=== PATIENT | female | born 1990 | race Caucasian/White ===

== ENCOUNTER → 2017-12-03 | Outpatient (REF) | payer OTHER ==
[2017-12-03 13:48] LABS: FOLLICLE STIMULATING HORMONE 5.2 mIU/mL
[2017-12-03 14:28] LABS: HIV 1&2 SCREEN CENTAUR NEGATIVE (NEGATIVE)
== END ==
LOC: M LAB REF 12:59
DX: N97.9 Female infertility, unspecified (principal); Z13.9 Encounter for screening, unspecified

== ENCOUNTER → 2017-12-03 | Outpatient (REF) | payer OTHER ==
[2017-12-03 15:46] LABS: CHLAMYDIA DNA AMPLIFICATION NEGATIVE (NEGATIVE); GC DNA AMPLIFICATION NEGATIVE (NEGATIVE)
== END ==
LOC: M LAB REF 12:59
DX: Z13.9 Encounter for screening, unspecified (principal)

== ENCOUNTER → 2017-12-11 | Outpatient (REF) | payer OTHER ==
[2017-12-13 14:17] LABS: HPV HYBRID CAPTURE II Negative (Negative)
== END ==
LOC: M LAB REF 14:46
DX: Z11.51 Encounter for screening for human papillomavirus (HPV) (principal)
CPT/HCPCS: G0123

== ENCOUNTER → 2018-03-11 | Outpatient (REF) | payer OTHER ==
[2018-03-11 18:11] LABS: HCG, SERUM QUANTITATIVE < 1.0 MIU/ML
== END ==
LOC: M LAB REF 16:22
DX: N92.0 Excessive and frequent menstruation with regular cycle (principal)

== ENCOUNTER → 2018-12-27 | Outpatient (REF) | payer OTHER ==
[2019-01-01 00:06] LABS: HPV HYBRID CAPTURE II Negative (Negative)
== END ==
LOC: M LAB REF 14:12
PROVIDERS: ATTEND Obstetrics & Gynecology
DX: Z12.4 Encounter for screening for malignant neoplasm of cervix (principal); Z11.51 Encounter for screening for human papillomavirus (HPV)
CPT/HCPCS: 87624; G0123

== ENCOUNTER → 2019-03-12 | Outpatient (REF) | payer OTHER ==
[2019-03-12 19:01] LABS: BASO % 0.2 % (0.0-1.0); HEMOGLOBIN 14.1 g/dl (12.0-15.5); LYMPH # 1.7 10^3/uL (1.5-4.5); LYMPH % 31.6 % (24.0-44.0); MEAN CORPUSCULAR HEMOGLOBIN 29.4 pg (27.0-33.0); MEAN CORPUSCULAR HGB CONC 33.6 g/dl (32.0-36.5); MEAN CORPUSCULAR VOLUME 87.7 fl (80.0-96.0); MONO # 0.5 10^3/uL (0.0-0.8); MONO % 8.5 % (0.0-5.0); NEUTROPHILS # 3.3 10^3/uL (1.8-7.7); NEUTROPHILS % 59.5 % (36.0-66.0); PLATELET COUNT, AUTOMATED 239 10^3/uL (150-450); RED BLOOD COUNT 4.79 10^6/uL (4.00-5.40); WHITE BLOOD COUNT 5.5 10^3/uL (4.0-10.0)
[2019-03-12 19:17] LABS: ALBUMIN 4.1 GM/DL (3.2-5.2); ALT/SGPT 23 U/L (12-78); BILIRUBIN,TOTAL 0.3 MG/DL (0.2-1.0); BLOOD UREA NITROGEN 18 MG/DL (7-18); CALCIUM LEVEL 8.4 MG/DL (8.5-10.1); CARBON DIOXIDE LEVEL 27 MEQ/L (21-32); CHLORIDE LEVEL 107 MEQ/L (98-107); CHOLESTEROL LEVEL 197 MG/DL (<200); CHOLESTEROL RISK RATIO 3.078 (<5); CREATININE FOR GFR 0.73 MG/DL (0.55-1.30); GLOMERULAR FILTRATION RATE > 60.0 (>60); GLUCOSE, FASTING 83 MG/DL (70-100); HDL CHOLESTEROL 64 MG/DL (>40); LDL CHOLESTEROL 118 MG/DL (<100); NON-HDL-C 133 MG/DL; POTASSIUM SERUM 4.1 MEQ/L (3.5-5.1); SODIUM LEVEL 142 MEQ/L (136-145); TOTAL PROTEIN 7.5 GM/DL (6.4-8.2); TRIGLYCERIDES LEVEL 74 MG/DL (<150)
[2019-03-12 19:45] LABS: HEMOGLOBIN A1c 4.9 %
== END ==
LOC: M LAB REF 18:16
PROVIDERS: ATTEND Nurse Practitioner Family
DX: Z12.4 Encounter for screening for malignant neoplasm of cervix (principal); N97.9 Female infertility, unspecified

== ENCOUNTER → 2019-08-18 | Outpatient (REF) | payer OTHER ==
[2019-08-18 13:26] LABS: HEMATOCRIT 43.8 % (36.0-47.0); HEMOGLOBIN 14.6 g/dl (12.0-15.5); LYMPH % 30.8 % (24.0-44.0); MEAN CORPUSCULAR HEMOGLOBIN 29.2 pg (27.0-33.0); MEAN CORPUSCULAR HGB CONC 33.3 g/dl (32.0-36.5); MEAN CORPUSCULAR VOLUME 87.6 fl (80.0-96.0); MONO # 0.6 10^3/uL (0.0-0.8); MONO % 8.5 % (0.0-5.0); NEUTROPHILS % 60.4 % (36.0-66.0); PLATELET COUNT, AUTOMATED 235 10^3/uL (150-450); WHITE BLOOD COUNT 6.6 10^3/uL (4.0-10.0)
[2019-08-18 13:37] LABS: ALT/SGPT 20 U/L (12-78); BILIRUBIN,TOTAL 0.4 MG/DL (0.2-1.0); BLOOD UREA NITROGEN 23 MG/DL (7-18); CALCIUM LEVEL 8.6 MG/DL (8.5-10.1); CARBON DIOXIDE LEVEL 27 MEQ/L (21-32); CHLORIDE LEVEL 107 MEQ/L (98-107); CHOLESTEROL LEVEL 160 MG/DL (<200); CHOLESTEROL RISK RATIO 2.622 (<5); CREATININE FOR GFR 0.73 MG/DL (0.55-1.30); GLOMERULAR FILTRATION RATE > 60.0 (>60); GLUCOSE, FASTING 88 MG/DL (70-100); HDL CHOLESTEROL 61 MG/DL (>40); LDL CHOLESTEROL 84 MG/DL (<100); NON-HDL-C 99 MG/DL; POTASSIUM SERUM 3.9 MEQ/L (3.5-5.1); SODIUM LEVEL 140 MEQ/L (136-145); TOTAL PROTEIN 7.1 GM/DL (6.4-8.2); TRIGLYCERIDES LEVEL 74 MG/DL (<150)
== END ==
LOC: M LAB REF 12:25
PROVIDERS: ATTEND Nurse Practitioner Family
DX: L50.9 Urticaria, unspecified (principal); Z13.9 Encounter for screening, unspecified

== ENCOUNTER → 2019-09-29 | Outpatient (CLI) | payer OTHER ==
[2019-09-29 13:40] LABS: ALBUMIN 4.1 GM/DL (3.2-5.2); ALT/SGPT 50 U/L (12-78); BILIRUBIN,TOTAL 0.7 MG/DL (0.2-1.0); BLOOD UREA NITROGEN 14 MG/DL (7-18); CALCIUM LEVEL 9.4 MG/DL (8.5-10.1); CARBON DIOXIDE LEVEL 28 MEQ/L (21-32); CHLORIDE LEVEL 105 MEQ/L (98-107); CREATININE FOR GFR 0.72 MG/DL (0.55-1.30); GLOMERULAR FILTRATION RATE > 60.0 (>60); GLUCOSE, FASTING 84 MG/DL (70-100); POTASSIUM SERUM 3.3 MEQ/L (3.5-5.1); RHEUMATOID FACTOR QUANT < 10.0 IU/ML (<15.0); SODIUM LEVEL 142 MEQ/L (136-145); THYROGLOBULIN ANTIBODY < 15.0 U/ML (<60.0); THYROID PEROXIDASE ANTIBODY < 28.0 U/ML (<60.0); THYROXINE (T4) 8.8 UG/DL (4.5-12.0); TOTAL PROTEIN 7.6 GM/DL (6.4-8.2); TOTAL T3 119.2 NG/DL (60.0-181.0)
[2019-10-03 14:57] LABS: ANTINUCLEAR ANTIBODIES DIRECT Negative (Negative); IGE RECEPTOR ABY 1 30.2 (<10)
== END ==
LOC: M LAB 12:02
PROVIDERS: ATTEND Allergy & Immunology Allergy
DX: L50.1 Idiopathic urticaria (principal)

== ENCOUNTER → 2019-11-05 | Outpatient (REF) | payer OTHER ==
[2019-11-05 13:19] LABS: HEMATOCRIT 43.2 % (36.0-47.0); HEMOGLOBIN 13.8 g/dl (12.0-15.5); LYMPH # 1.3 10^3/uL (1.5-5.0); LYMPH % 22.9 % (24.0-44.0); MEAN CORPUSCULAR HEMOGLOBIN 27.9 pg (27.0-33.0); MEAN CORPUSCULAR HGB CONC 31.9 g/dl (32.0-36.5); MEAN CORPUSCULAR VOLUME 87.3 fl (80.0-96.0); MONO # 0.5 10^3/uL (0.0-0.8); MONO % 8.1 % (0.0-5.0); NEUTROPHILS # 3.8 10^3/uL (1.5-8.5); NEUTROPHILS % 68.6 % (36.0-66.0); PLATELET COUNT, AUTOMATED 234 10^3/uL (150-450); RED BLOOD COUNT 4.95 10^6/uL (4.00-5.40); WHITE BLOOD COUNT 5.5 10^3/uL (4.0-10.0)
[2019-11-05 13:24] LABS: ALT/SGPT 25 U/L (12-78); BILIRUBIN,TOTAL 0.5 MG/DL (0.2-1.0); BLOOD UREA NITROGEN 18 MG/DL (7-18); CALCIUM LEVEL 8.5 MG/DL (8.5-10.1); CARBON DIOXIDE LEVEL 27 MEQ/L (21-32); CHLORIDE LEVEL 107 MEQ/L (98-107); CHOLESTEROL LEVEL 188 MG/DL (<200); CHOLESTEROL RISK RATIO 3.481 (<5); CREATININE FOR GFR 0.69 MG/DL (0.55-1.30); GLOMERULAR FILTRATION RATE > 60.0 (>60); GLUCOSE, FASTING 85 MG/DL (70-100); HDL CHOLESTEROL 54 MG/DL (>40); LDL CHOLESTEROL 115 MG/DL (<100); NON-HDL-C 134 MG/DL; POTASSIUM SERUM 4.1 MEQ/L (3.5-5.1); SODIUM LEVEL 141 MEQ/L (136-145); TRIGLYCERIDES LEVEL 94 MG/DL (<150)
== END ==
LOC: M LAB REF 10:54
PROVIDERS: ATTEND Nurse Practitioner Family
DX: Z13.9 Encounter for screening, unspecified (principal); L50.9 Urticaria, unspecified; F41.8 Other specified anxiety disorders

== ENCOUNTER → 2019-12-29 | Outpatient (REF) | payer OTHER | LOC: M SFHCWAGY 11:17 | PROVIDERS: ATTEND Obstetrics & Gynecology | DX: Z12.4 Encounter for screening for malignant neoplasm of cervix (principal) | CPT/HCPCS: 87624; G0123 ==

== ENCOUNTER → 2021-01-07 | Outpatient (REF) | payer OTHER ==
[2021-01-07 13:08] LABS: BASO % 0.2 % (0.0-1.0); HEMATOCRIT 43.2 % (36.0-47.0); HEMOGLOBIN 14.4 g/dl (12.0-15.5); LYMPH # 1.3 10^3/uL (1.5-5.0); LYMPH % 27.4 % (24.0-44.0); MEAN CORPUSCULAR HEMOGLOBIN 28.7 pg (27.0-33.0); MEAN CORPUSCULAR HGB CONC 33.3 g/dl (32.0-36.5); MEAN CORPUSCULAR VOLUME 86.2 fl (80.0-96.0); MONO # 0.5 10^3/uL (0.0-0.8); MONO % 10.5 % (2.0-8.0); NEUTROPHILS % 61.7 % (36.0-66.0); PLATELET COUNT, AUTOMATED 236 10^3/uL (150-450); RED BLOOD COUNT 5.01 10^6/uL (4.00-5.40); WHITE BLOOD COUNT 4.9 10^3/uL (4.0-10.0)
[2021-01-07 13:23] LABS: ALBUMIN 4.2 GM/DL (3.2-5.2); ALT/SGPT 20 U/L (12-78); BILIRUBIN,TOTAL 0.4 MG/DL (0.2-1.0); BLOOD UREA NITROGEN 21 MG/DL (7-18); CALCIUM LEVEL 9.2 MG/DL (8.5-10.1); CARBON DIOXIDE LEVEL 29 MEQ/L (21-32); CHLORIDE LEVEL 108 MEQ/L (98-107); CHOLESTEROL LEVEL 204 MG/DL (<200); CHOLESTEROL RISK RATIO 3.457 (<5); CREATININE FOR GFR 0.68 MG/DL (0.55-1.30); FREE T4 0.85 NG/DL (0.76-1.46); GLOMERULAR FILTRATION RATE > 60.0 (>60); GLUCOSE, FASTING 98 MG/DL (70-100); HDL CHOLESTEROL 59 MG/DL (>40); LDL CHOLESTEROL 135 MG/DL (<100); NON-HDL-C 145 MG/DL; POTASSIUM SERUM 4.2 MEQ/L (3.5-5.1); SODIUM LEVEL 140 MEQ/L (136-145); TOTAL PROTEIN 7.3 GM/DL (6.4-8.2); TRIGLYCERIDES LEVEL 52 MG/DL (<150)
[2021-01-07 18:00] LABS: TOTAL 25(OH) VITAMIN D 21.4 NG/ML (30.0-100.0)
== END ==
LOC: M LAB REF 12:00
PROVIDERS: ATTEND Nurse Practitioner Family
DX: E78.5 Hyperlipidemia, unspecified (principal); F41.9 Anxiety disorder, unspecified

== ENCOUNTER → 2021-08-22 | Outpatient (REF) | payer OTHER | LOC: M SFHCWAGY 10:05 | PROVIDERS: ATTEND Obstetrics & Gynecology | DX: Z01.419 Encounter for gynecological examination (general) (routine) without abnormal findings (principal) ==

== ENCOUNTER 2021-09-13 13:17 | Emergency (ER) | payer OTHER ==
[~2021-09-13] VITALS: Ht 160 cm; Wt 107.4 kg
--- OUTSIDE RECORDS SUMMARY | 2021-09-13 13:23 | CCD ---
Author Organization Unknown Address [address] [place] [address] Phone [phone] Care Team Providers Care Cook Relief Name Role Phone [facility] 2 [phone] [facility] 2 [phone] Allergies Code Code System Name Reaction Severity Status Onset Azithromycin Active [id number] RxNorm Latex Active 10/08/2019 Medications Name Status Start Date Stop Date ergocalciferol (vitamin D2) 1,250 mcg (50,000 unit) capsule Comp leted 07/26/2021 hydroxyzine HCl 25 mg tablet TAKE ONE TO TWO TABLETS BY MOUTH TWICE A DAY NEEDED FOR ITCHING OR INCREASED ANXIETY Active Not available ibuprofen 800 mg tablet TAKE ONE TABLET BY MOUTH THREE TIMES A DAY FOR 10 DAYS Completed 01/18/2021 ketoconazole 2 % shampoo SHAMPOO DAILY UNTIL SCALP IS CLEAR THEN 2 3 TIMES PER WEEK FOR MAINTENANCE Active Not available omeprazole 20 mg capsule,delayed release TAKE ONE CAPSULE BY MOUTH EVERY DAY Active Not available One Daily Complete Active Not available Problems Name Status Onset Date Source Ganglion of Wrist Active 11/07/2017 History Clinical Finding Active 11/07/2017 History Finding of Fertility Active 11/07/2017 History Screening for Malignant Neoplasm of Cervix Active 12/15 History Left Lower Quadrant Pain Active 03/11/2018 History Finding of Menstrual Bleeding Active 03/11/2018 Hi story Acute Maxillary Sinusitis Active 07/12/[address] Concept Active 03/12/2019 History Clinical Finding Active 08/11/2019 History Emotional State Finding Active 08/11/2019 History Diarrhea Active 09/15/2019 History Abscess of Submandibular Region Active 10/08/2019 History 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 Active 10/09/2019 History Mild Major Depression, Single Episode Active 10/27/[address] Concept Active 10/27/2019 History Patient Asked to Attend Active 11/12/2019 History General Finding of Observation of Patient Active 2019 History Hypertrophic Condition of Skin Active 06/07/2020 H istory Procedures Notes: No known surgical history Results Lab Results Date Name Specimen Result Interpretation Description Value Range Status Address 04/11/2021 Lipid Panel, Blood Blood venous Cholesterol , Total 197 mg/dL <200 mg/dL Final [facility]: [address] [facility] Blood venous HDL Cholesterol 53 mg/dL > or = 50 mg/dL Final [facility]: [address] [facility] Blood venous Triglycerides 70 mg/dL <150 m g/dL Final [facility]: [address] [facility] Blood venous High LDL-cholesterol 128 mg/d L (calc) <100 mg/dL (calc) Final [facility] venous Chol/hdlc Ratio 3.7 calc <5.0 calc Final [facility]: [address] [facility] Blood venous High Non HDL Cholesterol 144 mg/dL (calc) <130 mg/dL (calc) Final [facility]: [address] [facility] 04/11/2021 CMP, Serum or Plasma Blood venous Normal Glucose 92 mg/dL 65-99 mg/dL Final [facility]: [address] [facility] Blood venous Normal Urea Nitrogen (BUN) 18 mg/dL 7-25 mg/dL Final [facility]: [address] [facility] Blood venous Normal Creatinine 0.61 mg/dL 0.50-1. 10 mg/dL Final [facility]: [address] [facility] Blood venous Normal eGFR Non-afr. Finnish 1 20 mL/min/1.73m2 > or = 60 mL/min/1.73m2 Final [facility]: [address] [facility] Blood venous Normal eGFR 13 9 mL/min/1.73m2 > or = 60 mL/min/1.73m2 Final [facility]: [address] [facility] Blood venous BUN/creatinine Ratio not applicable (calc) 6-22 (calc) Final [facility]: [address] [facility] Blood venous Normal Sodium 140 mmol/L 135-146 mmo l/L Final [facility]: [address] [facility] Blood venous Normal Potassium 4.7 mmol/L 3.5-5.3 mmol/L Final [facility]: [address] [facility] Blood venous Normal Chloride 104 mmol/L 98-110 mm ol/L Final [facility]: [address] [facility] Blood venous Normal Carbon Dioxide 27 mmol/L 20-3 2 mmol/L Final [facility]: [address] [facility] Blood venous Normal Calcium 9.2 mg/dL 8.6-10.2 mg /dL Final [facility]: [address] [facility] Blood venous Normal Protein, Total 6.9 g/dL 6.1-8 .1 g/dL [facility]: [address] [facility] Blood venous Normal Albumin 4.4 g/dL 3.6-5.1 g/dL [facility]: [address] [facility] Blood venous Normal Globulin 2.5 g/dL (calc) 1.9- 3.7 g/dL (calc) Final [facility]: [address] [facility] Blood venous Normal Albumin/globulin Ratio 1 .8 (calc) 1.0-2.5 (calc) Final [facility] Blood venous Normal Bilirubin, Total 0.6 mg/dL 0. 2-1.2 mg/dL Final [facility]: [address] [facility] Blood venous Normal Alkaline Phosphatase 81 U/L 3 1-125 U/L Final [facility]: [address] [facility] Blood venous Normal Ast 15 U/L 10-30 U/L Final [facility]: [address] [facility] Blood venous Normal Alt 14 U/L 6-29 U/L Final [facility]est [facility]: [address] [facility] 04/11/2021 CBC W/ Auto Diff Blood venous Normal White B lood Cell Count 4.9 thousand/uL 3.8-10.8 thousand/uL Final [facility]: [address] [facility] Blood venous Normal Red Blood Cell Count 4.8 3 million/uL 3.80-5.10 million/uL [facility] [address] [facility] Blood venous Normal Hemoglobin 14.0 g/dL 11.7-15. 5 g/dL [facility]: [address] [facility] Blood venous Normal Hematocrit 42.0 % 35.0-45.0 % [facility]: [address] [facility] Blood venous Normal Mcv 87.0 fL 80.0-100.0 fL Fi [facility]: [address] [facility] Blood venous Normal Mch 29.0 pg 27.0-33.0 pg Fin [facility]: [address] [facility] Blood venous Normal Mchc 33.3 g/dL 32.0-36.0 g/dL [facility]: [address] [facility] Blood venous Normal Rdw 12.6 % 11.0-15.0 % [facility]: [address] [facility] Blood venous Normal Platelet Count 250 thous and/uL 140-400 thousand/uL [facility]: [address] [facility] Blood venous Normal Mpv 9.9 fL 7.5-12.5 fL [facility]: [address] [facility] Blood venous Normal Absolute Neutrophils 303 3 cells/uL 0760-3555 cells/uL [facility]: [address] [facility] Blood venous Normal Absolute Lymphocytes 139 7 cells/uL 850-3900 cells/uL [facility]: [facility] Blood venous Normal Absolute Monocytes 470 c ells/uL 200-950 cells/uL [facility]: [address] [facility] [address] [facility] Blood venous Low Absolute Eosinophils 0 cells/ uL 15-500 cells/uL [facility]: [address], [place] Blood venous Normal Absolute Basophils 0 cells/uL 0-200 cells/uL [facility] [place]: [address] [facility] Blood venous Normal Neutrophils 61.9 % 38-80 % Fi [facility]: [address] [facility] Blood venous Normal Lymphocytes 28.5 % 15-49 % Fi [facility]: [facility] Blood venous Normal Monocytes 9.6 % 0-13 % [facility]: [address] [facility] Blood venous Normal Eosinophils 0.0 % 0-8 % Fin [facility]: [address], [place] Blood venous Normal Basophils 0.0 % 0-2 % Final [facility]: [address] [place] 01/07/2021 CBC W/ Auto Diff Blood venous Normal White Blood C ount 4.9 10 4.0-10.0 10 [facility]: 83 0 [facility] Blood venous Normal Red Blood Count 5.01 10 4.00- 5.40 10 [facility]: [address] [facility] Blood venous Normal Hemoglobin 14.4 g/dL 12.0-15. 5 g/dL [facility]: [address] [facility] Blood venous Normal Hematocrit 43.2 % 36.0-47.0 % [facility]: [address] [facility] Blood venous Normal Mean Corpuscular Volume 86.2 fL 80.0-96.0 fL [facility]: [address] [place] [address] Blood venous Normal Mean Corpuscular Hemoglob in 28.7 pg 27.0-33.0 pg [facility]: [address] [facility] Blood venous Normal Mean Corpuscular HGB Conc 33.3 g/dL 32.0-36.5 g/dL [facility]: [address] [facility] Blood venous Normal Red Cell Distribution Wid th 12.7 % 11.5-14.5 % [facility]: [address] [facility] Blood venous Normal Platelet Count, Automated 236 10 150-450 10 [facility]: [address] [facility] Blood venous Normal Neutrophils % 61.7 % 36.0-66. 0 % [facility]: [address] [facility] Blood venous Normal Lymph % 27.4 % 24.0-44.0 % [facility]: [address] [facility] Blood venous High [place] % 10.5 % 2.0-8.0 % [facility]: [address] [place] [address] Blood venous Normal Eos % 0.0 % 0.0-3.0 % [facility]: [address] [place] [address] Blood venous Normal Baso % 0.2 % 0.0-1.0 % [facility]: [address] [place] [address] Blood venous Normal Immature Granulocyte % 0.2 % 0-3.0 % [facility]: [address] [place] [address] Blood venous Normal Nucleated Red Blood Cell % 0. 0 % 0-0 % [facility]: [address] [place] [address] Blood venous Normal Neutrophils # 3.0 10 1.5-8.5 10 [facility]: [address] [place] [address] Blood venous Low Lymph # 1.3 10 1.5-5.0 10 [facility]: [address] [place] [address] Blood venous Normal [place] # 0.5 10 0.0-0.8 10 [facility]: [address] [place] [address] Blood venous Normal Eos # 0.0 10 0.0-0.5 10 [facility]: [address] [place] [address] Blood venous Normal Baso # 0.0 10 0.0-0.2 10 [facility]: [address] [place] [address] 01/07/2021 CMP, Serum or Plasma Blood venous Normal Glu cose, Fasting 98 mg/dL 70-100 mg/dL [facility] nter: [address] [place] [address] Blood venous High Blood Urea Nitrogen 21 mg/dL 7-18 mg/dL [facility]: [address] [place] [address] Blood venous Normal Creatinine for GFR 0.68 mg/dL 0.55-1.30 mg/dL [facility]: [address] [place] [address] Blood venous Normal Glomerular Filtration Rate > 60.0 >60 [facility]: [address] [place] [address] Blood venous Normal Sodium Level 140 mEq/L 136-14 5 mEq/L [facility]: [address] [place] [address] Blood venous Normal Potassium Serum 4.2 mEq/L 3.5 -5.1 mEq/L [facility]: [address] [place] [address] Blood venous High Chloride Level 108 mEq/L 98-1 07 mEq/L [facility]: [address] [facility] Blood venous Normal Carbon Dioxide Level 29 mEq/L 21-32 mEq/L [facility]: [address] [facility] Blood venous Low Anion Gap 3 mEq/L 8-16 mEq/L [facility]: [address] [facility] Blood venous Normal Calcium Level 9.2 mg/dL 8.5-1 0.1 mg/dL Final [facility]: [address] [facility] Blood venous Normal AST/SGOT 10 U/L 7-37 U/L [facility]: [address] [facility] Blood venous Normal ALT/SGPT 20 U/L 12-78 U/L [facility]: [address] [facility] Blood venous Normal Alkaline Phosphatase 80 U/L 4 5-117 U/L [facility]: [address] [facility] Blood venous Normal Bilirubin,total 0.4 mg/dL 0.2 -1.0 mg/dL [facility]: [address] [facility] Blood venous Normal Total Protein 7.3 gm/dL 6.4-8 .2 gm/dL [facility]: 0 [facility] Blood venous Normal Albumin 4.2 gm/dL 3.2-5.2 gm/ dL [facility]: [address] [facility] Blood venous Normal Albumin/globulin Ratio 1.4 1.2-2.2 [facility]: 0 [facility] 01/07/2021 Lipid Panel, Blood Blood venous Normal Trigl ycerides Level 52 mg/dL <150 mg/dL [facility] nter: [address] [facility] Blood venous High Cholesterol Level 204 mg/dL < 200 mg/dL [facility]: [address] [facility] Blood venous Normal HDL Cholesterol 59 mg/dL >40 mg/dL [facility]: [address] [facility] Blood venous High LDL Cholesterol 135 mg/dL <10 0 mg/dL [facility]: [address] [facility] Blood venous Normal Non-hdl-c 145 mg/dL [facility]: [address] [facility] Blood venous Normal Cholesterol Risk Ratio 3.457 <5 [facility]: [address] [place] [address] 01/07/2021 TSH + Free T4, Serum Blood venous Normal Thyroid Stimulating Hormone 2.280 uIU/mL 0.358-3.740 uIU/mL [facility]: [address] [place] [address] Blood venous Normal Free T4 0.85 NG/dL 0.76-1.46 NG/dL [facility]: [address] [place] [address] 01/07/2021 Vitamin D, 25-Hydroxy, Total, Serum Blood venous Low Total 25(Oh) Vitamin D 21.4 NG/mL 30.0-100.0 NG/mL [facility] Center: [address] [place] [address] Past Encounters 07/26/2021 Generalized Anxiety Disorder; Body Mass Index 40+ - Severely Obese [facility]: [address] [place] [phone], Ph. 04/25/2021 Body Mass Index 30+ - Obesity; Patient Asked to Attend; Hyperlipidemia [place] [facility]: [address] [place] [phone], Ph. 04/11/2021 Hyperlipidemia Zachary Salinas MD: [address] [place] [phone], Ph. 01/18/2021 Generalized Anxiety Disorder; Mixed Anxiety and Depressive Disorder; Vitamin D Deficiency; Hyperlipidemia; Gastroesophageal Reflux Disease without Esophagitis; Obesity [facility]: [address] [place] [phone], Ph. 01/07/2021 Zachary Salinas MD: [address] [place] [phone], Ph. Social History Tobacco Smoking Status Never Smoker Vaccine List Vaccine Type COVID-19, mRNA, LNP-S, PF, 100 mcg/0.5 m L dose 07/08/2021 Notes: Pt scheduled for 2nd dose on (08/05/21) Plan of Care Patient Instructions Please continue medications as prescribe d. Please try to maintain good nutrition, adequate rest and adequate physical activities and adequate intake of water daily. Lab results reviewed and discussed with you today. Please continue medications as prescribed. Please try to maintain good nutrition, adequate rest and adequate physical activities and adequate intake of water daily. Lab results reviewed and discussed with you today. Please continue medications as prescribed. Please try to maintain good nutrition, adequate rest, adequate physical activities and adequate intake of water daily. Please try to avoid processed foods. Reminders Provider Appointments None recorded. Lab None recorded. Referral None recorded. Procedures None recorded. Surgeries None recorded. Imaging None recorded. Vitals 07/26/2021 03:20PM ESTABLISHED [id number] Height Weight BMI Blood Pressure 63 in 227 lbs 40.2 kg/m2 108/74 mm[Hg] 04/25/2021 08:20AM ESTABLISHED [id number] Height Weight BMI Blood Pressure 63 in 222 lbs 8 oz 39.4 kg/m2 99/70 mm[Hg] 04/11/2021 08:00AM NURSE LAB COLLECTION Height 63 in 01/18/2021 04:40PM ESTABLISHED [id number] Height Weight BMI Blood Pressure 63 in 228 lbs 4 oz 40.4 kg/m2 112/81 mm[Hg] 06/07/2020 Height Weight BMI Blood Pressure 63 in 217 lbs 8 oz 38.67 kg/m2 119/82 mm[Hg] 03/04/2020 Height Weight BMI Blood Pressure 63 in 217 lbs 8 oz 38.67 kg/m2 107/74 mm[Hg] 11/12/2019 Height Weight BMI Blood Pressure 63 in 212 lbs 37.69 kg/m2 111/78 mm[Hg] 10/08/2019 Blood Pressure 122/84 mm[Hg] 09/15/2019 Height Weight BMI Blood Pressure 63 in 212 lbs 6.08 oz 37.76 kg/m2 120/82 mm[H g] 08/11/2019 Height Weight BMI Blood Pressure 63 in 206 lbs 36.62 kg/m2 111/75 mm[Hg] 03/12/2019 Height Weight BMI Blood Pressure 63 in 201 lbs 8 oz 35.82 kg/m2 112/82 mm[Hg]
--- OUTSIDE RECORDS SUMMARY | 2021-09-13 13:23 | CCD ---
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 Name Role Phone Sruthi Salinas MD Unavailable Unavailable Sruthi Salinas MD Unavailable Unavailable Sruthi Salinas MD Unavailable Unavailable Sruthi Salinas MD Unavailable Unavailable Sruthi Salinas MD Unavailable Unavailable Sruthi Salinas MD Unavailable Unavailable Sruthi Salinas MD Unavailable Unavailable Sruthi Salinas MD Unavailable Unavailable Sruthi Salinas MD Unavailable Unavailable Sruthi Salinas MD Unavailable Unavailable Sruthi Salinas MD Unavailable Unavailable Sruthi Salinas MD Unavailable Unavailable Sruthi Salinas MD Unavailable Unavailable Sruthi Salinas MD Unavailable Unavailable Sruthi Salinas MD Unavailable Unavailable Sruthi Salinas MD Unavailable Unavailable Sruthi Salinas MD Unavailable Unavailable Sruthi Salinas MD Unavailable Unavailable Sruthi Salinas MD Unavailable Unavailable Sruthi Salinas MD Unavailable Unavailable Sruthi Salinas MD Unavailable Unavailable Sruthi Salinas MD Unavailable Unavailable Sruthi Salinas MD Unavailable Unavailable Sruthi Salinas MD Unavailable Unavailable Sruthi Salinas MD Unavailable Unavailable Sruthi Salinas MD Unavailable Unavailable Sruthi Salinas MD Unavailable Unavailable Sruthi Salinas MD Unavailable Unavailable Sruthi Salinas MD Unavailable Unavailable rSuthi Salinas MD Unavailable Unavailable Sruthi Salinas MD Unavailable Unavailable Sruthi Salinas MD Unavailable Unavailable Sruthi Salinas MD Unavailable Unavailable Sruthi Salinas MD Unavailable Unavailable Sruthi Salinas MD Unavailable Unavailable Sruthi Salinas MD Unavailable Unavailable Sruthi Salinas MD Unavailable Unavailable Sruthi Salinas MD Unavailable Unavailable Sruthi Salinas MD Unavailable Unavailable Sruthi Salinas MD Unavailable Unavailable Sruthi Salinas MD Unavailable Unavailable Sruthi Salinas MD Unavailable Unavailable Sruthi Salinas MD Unavailable Unavailable Sruthi Salinas MD Unavailable Unavailable Sruthi Salinas MD Unavailable Unavailable Srtuhi Salinas MD Unavailable Unavailable Sruthi Salinas MD Unavailable Unavailable Sruthi Salinas MD Unavailable Unavailable Sruthi Salinas MD Unavailable Unavailable Sruthi Salinas MD Unavailable Unavailable Sruthi Salinas MD Unavailable Unavailable Sruthi Salinas MD Unavailable Unavailable Sruthi Salinas MD Unavailable Unavailable Sruthi Salinas MD Unavailable Unavailable Sruthi Salinas MD Unavailable Unavailable Sruthi Salinas MD Unavailable Unavailable Sruthi Salinas MD Unavailable Unavailable Sruthi Salinas MD Unavailable Unavailable Sruthi Salinas MD Unavailable Unavailable Sruthi Salinas MD Unavailable Unavailable Sruthi Salinas MD Unavailable Unavailable Sruthi Salinas MD Unavailable Unavailable Sruthi Salinas MD Unavailable Unavailable Sruthi Salinas MD Unavailable Unavailable Sruthi Salinas MD Unavailable Unavailable Sruthi Salinas MD Unavailable Unavailable Sruthi Salinas MD Unavailable Unavailable Sruthi Salinas MD Unavailable Unavailable Sruthi Salinas MD Unavailable Unavailable Sruthi Salinas MD Unavailable Unavailable Sruthi Salinas MD Unavailable Unavailable Sruthi Salinas MD Unavailable Unavailable Sruthi Salinas MD Unavailable Unavailable Sruthi Salinas MD Unavailable Unavailable Sruthi Salinas MD Unavailable Unavailable Sruthi Salinas MD Unavailable Unavailable Sruthi Salinas MD Unavailable Unavailable Sruthi Salinas MD Unavailable Unavailable Sruthi Salinas MD Unavailable Unavailable Sruthi Salinas MD Unavailable Unavailable Sruthi Salinas MD Unavailable Unavailable Sruthi Salinas MD Unavailable Unavailable Sruthi Salinas MD Unavailable Unavailable Sruthi Salinas MD Unavailable Unavailable Sruthi Salinas MD Unavailable Unavailable Sruthi Salinas MD Unavailable Unavailable Sruthi Salinas MD Unavailable Unavailable Sruthi Salinas MD Unavailable Unavailable Sruthi Salinas MD Unavailable Unavailable Sruthi Salinas MD Unavailable Unavailable Sruthi Salinas MD Unavailable Unavailable Sruthi Salinas MD Unavailable Unavailable Sruthi Salinas MD Unavailable Unavailable Maring, Heri PA Unavailable Unavailable Maring, Heri PA Unavailable Unavailable Maring, Heri PA Unavailable Unavailable Maring, Heri PA Unavailable Unavailable Maring, Heri PA Unavailable Unavailable Maring, Heri PA Unavailable Unavailable Maring, Heri PA Unavailable Unavailable Maring, Heri PA Unavailable Unavailable Maring, Heri PA Unavailable Unavailable Maring, Heri PA Unavailable Unavailable Maring, Heri PA Unavailable Unavailable Maring, Heri PA Unavailable Unavailable Maring, Heri PA Unavailable Unavailable Maring, Heri PA Unavailable Unavailable Maring, Heri PA Unavailable Unavailable Maring, Heri PA Unavailable Unavailable Wicho, A Marcelina DYE RANGE TENDER Unavailable Unavailable Wicho, A Marcelina DYE RANGE TENDER Unavailable Unavailable Wicho, A Marcelina DYE RANGE TENDER Unavailable Unavailable Wicho, A Marcelina DYE RANGE TENDER Unavailable Unavailable Wicho, A Marcelina DYE RANGE TENDER Unavailable Unavailable Wicho, A Marcelina DYE RANGE TENDER Unavailable Unavailable Wicho, A Marcelina DYE RANGE TENDER Unavailable Unavailable Wicho, A Marcelina DYE RANGE TENDER Unavailable Unavailable Wicho, A Marcelina DYE RANGE TENDER Unavailable Unavailable Wicho, A Marcelina DYE RANGE TENDER Unavailable Unavailable Wicho, A Marcelina DYE RANGE TENDER Unavailable Unavailable Wicho, A Marcelina DYE RANGE TENDER Unavailable Unavailable Wicho, A Marcelina DYE RANGE TENDER Unavailable Unavailable Wicho, A Marcelina DYE RANGE TENDER Unavailable Unavailable Wicho, A Marcelina DYE RANGE TENDER Unavailable Unavailable Wicho, A Marcelina DYE RANGE TENDER Unavailable Unavailable Wicho, A Marcelina DYE RANGE TENDER Unavailable Unavailable Wicho, A Marcelina DYE RANGE TENDER Unavailable Unavailable Wicho, A Marcelina DYE RANGE TENDER Unavailable Unavailable Wicho, A Marcelina DYE RANGE TENDER Unavailable Unavailable Wicho, A Marcelina DYE RANGE TENDER Unavailable Unavailable Wicho, A Marcelina DYE RANGE TENDER Unavailable Unavailable Wicho, A Marcelina DYE RANGE TENDER Unavailable Unavailable Wicho, A Marcelina DYE RANGE TENDER Unavailable Unavailable Wicho, A Marcelina DYE RANGE TENDER Unavailable Unavailable Wicho, A Marcelina DYE RANGE TENDER Unavailable Unavailable Wicho, A Marcelina DYE RANGE TENDER Unavailable Unavailable Wicho, A Marcelina DYE RANGE TENDER Unavailable Unavailable Wicho, A Marcelina DYE RANGE TENDER Unavailable Unavailable Wicho, A Marcelina DYE RANGE TENDER Unavailable Unavailable Wicho, A Marcelina DYE RANGE TENDER Unavailable Unavailable Re-disclosure Warning The records that you are about to access may contain information from federally-assisted alcohol or drug abuse programs. If such information is present, then the following federally mandated warning applies: This information has been disclosed to you from records protected by federal confidentiality rules (42 CFR part 2). The federal rules prohibit you from making any further disclosure of this information unless further disclosure is expressly permitted by the written consent of the person to whom it pertains or as otherwise permitted by 42 CFR part 2. A general authorization for the release of medical or other information is NOT sufficient for this purpose. The Federal rules restrict any use of the information to criminally investigate or prosecute any alcohol or drug abuse patient.The records that you are about to access may contain highly sensitive health information, the redisclosure of which is protected by Article 27-F of the [facility] Public Health law. If you continue you may have access to information: Regarding HIV / AIDS; Provided by facilities licensed or operated by the [facility] Office of Mental Health; or Provided by the [facility] Office for People With Developmental Disabilities. If such information is present, then the following [facility] mandated warning applies: This information has been disclosed to you from confidential records which are protected by state law. State law prohibits you from making any further disclosure of this information without the specific written consent of the person to whom it pertains, or as otherwise permitted by law. Any unauthorized further disclosure in violation of state law may result in a fine or penitentiary sentence or both. A general authorization for the release of medical or other information is NOT sufficient authorization for further disc losure. Family History Family Member Name Family Member Gender Family Member Status Date o f Status Description Data Source(s) Unknown Unknown Problem MEDENT ([facility]) Unknown Unknown Problem MEDENT ([facility]) Unknown Male Problem MEDENT ([facility] ) Encounters Encounter Providers Location Date Indications Data Source(s ) Outpatient [address] [facility] [id number] 08/22/2021 12:00:00 AM EDT eCW1 ([facility]) EMILY Bryant: [address] [place] [address], Ph. Attender: Marcelina Sands [facility] Medical 07/26/2021 12:00:00 AM EDT [place] ([facility]) EMILY Bryant: [address], [place] [address], Ph. Attender: Marcelina Sands [facility] Medical 04/25/2021 12:00:00 AM EDT [place] ([facility]) EMILY Bryant: [address] [place] [address], Ph. Attender: Marcelina Sands [facility] Medical 04/25/2021 12:00:00 AM EDT [place] ([facility]) Zachary Salinas MD: [address], [place] [address], Ph. Attender: Zachary Salinas MD [facility] Medical 04/11/2021 12:00:00 AM EDT [place] ([facility]) Zachary Salinas MD: [address] [place] [address], Ph. Attender: Zachary Salinas MD [facility] Medical 04/11/2021 12:00:00 AM EDT [place] ([facility]) Zachary Salinas MD: [address] [place] [address], Ph. Attender: Zachary Salinas MD [facility] Medical 04/11/2021 12:00:00 AM EDT [place] ([facility]) Marcelina Sands [facility]: [address], [place] [address], Ph. Attender: Marcelina Sands [facility] Medical 01/18/2021 12:00:00 AM EDT [place] ([facility]) Marcelina Sands [facility]: [address], [place] [address], Ph. Attender: Marcelina Sands [facility] Medical 01/18/2021 12:00:00 AM EDT [place] ([facility]) Marcelina Sands [facility]: [address], [place] [address], Ph. Attender: Marcelina Sands [facility] Medical 01/18/2021 12:00:00 AM EDT [place] ([facility]) Marcelina Sands [facility]: [address] [place] [address], Ph. Attender: Marcelina Sands [facility] Medical 01/18/2021 12:00:00 AM EDT [place] ([facility]) Zachary Salinas MD: [address] [place] [address], Ph. Attender: Zachary Salinas MD [facility] Medical 01/07/2021 12:00:00 AM EST [place] ([facility]) Zachary Salinas MD: [address] [place] [address], Ph. Attender: Zachary Salinas MD [facility] Medical 01/07/2021 12:00:00 AM EST [place] ([facility]) Zachary Salinas MD: [address] [place] [address], Ph. Attender: Zachary Salinas MD [facility] Medical 01/07/2021 12:00:00 AM EST [place] ([facility]) Zachary Salinas MD: [address] [place] [address], Ph. Attender: Zachary Salinas MD [facility] Medical 01/07/2021 12:00:00 AM EST [place] ([facility]) Zachary Salinas MD: [address] [place] [address], Ph. Attender: Zachary Salinas MD [facility] Medical 01/07/2021 12:00:00 AM EST [place] ([facility]) Outpatient Attender: Heri ARMENTA 12/26/19 05:41:46 PM EST - 12/26/2020 06:58:04 PM EST DocuTap ([facility] ) Immunizations Vaccine Date Status Description Data Source(s) COVID-19 VACCINE Moderna 08/05/2021 12:00:00 AM EDT completed [place] Vaccine Series Complete: YESThis Data wa s Submitted to [facility] Via [employer]. COVID-19, mRNA, LNP-S, PF, 100 mcg/0.5 mL dose 07/08/2021 12 :00:00 AM EDT completed 07/08/2021 [place] ([facility]) COVID-19 VACCINE Moderna 07/08/2021 12:00:00 AM EDT completed [place] Vaccine Series Complete: NOThis Data was Submitted to [facility] Via [employer]. Medications Medication Brand Name Start Date Product Form Dose Route Admi nistrative Instructions Pharmacy Instructions Status Indications Reaction Description Data Source(s) Omeprazole 20 MG Delayed Release Oral Capsule Omeprazole 20 MG 08/22/2021 12:00:00 AM EDT active Omeprazo le 20 MG [facility] Ibuprofen 800 MG Oral Tablet ibuprofen 8 00 mg tablet TAKE ONE TABLET BY MOUTH THREE TIMES A DAY FOR 10 DAYS ibuprofen 800 mg tablet TAKE ONE TABLET BY MOUTH THREE TIMES A DAY FOR 10 DAYS complete d ibuprofen 800 MG Oral Tablet [place] ([facility]) Ibuprofen 800 MG Oral Tablet ibuprofen 8 00 mg tablet TAKE ONE TABLET BY MOUTH THREE TIMES A DAY FOR 10 DAYS ibuprofen 800 mg tablet TAKE ONE TABLET BY MOUTH THREE TIMES A DAY FOR 10 DAYS complete d ibuprofen 800 MG Oral Tablet [place] ([facility]) Ergocalciferol 84556 UNT Oral Capsule er gocalciferol (vitamin D2) 1,250 mcg (50,000 unit) capsule ergocalciferol (vitamin D2) 1,250 mcg (5 0,000 unit) capsule completed ergocalciferol 1.25 MG Oral Capsule [place] ([facility]) Ibuprofen 800 MG Oral Tablet ibuprofen 8 00 mg tablet TAKE ONE TABLET BY MOUTH THREE TIMES A DAY FOR 10 DAYS ibuprofen 800 mg tablet TAKE ONE TABLET BY MOUTH THREE TIMES A DAY FOR 10 DAYS complete d ibuprofen 800 MG Oral Tablet [place] ([facility]) Ibuprofen 800 MG Oral Tablet ibuprofen 8 00 mg tablet TAKE ONE TABLET BY MOUTH THREE TIMES A DAY FOR 10 DAYS ibuprofen 800 mg tablet TAKE ONE TABLET BY MOUTH THREE TIMES A DAY FOR 10 DAYS complete d ibuprofen 800 MG Oral Tablet [place] ([facility]) Insurance Providers Payer name Policy type / Coverage type Policy ID Covered democrat ID Covered democrat's relationship to finch Policy Finch Plan Information [employer] (pr) Commercial [id number] Self [id number] [employer] (pr) Medigap Part B [id number] Self [id number] [employer] (pr) Commercial [id number] Self [id number] [employer] (pr) Commercial [id number] Self [id number] [employer] (pr) Medigap Part B [id number] Self [id number] [employer] (pr) Commercial [id number] Self [id number] [employer] P [id number] S [id number] UMR P [id number] S [id number] UMR P [id number] S [id number] U[employer] (pr) Commercial [id number] Self [id number] UMR P [id number] S [id number] UMR P [id number] S [id number] UMR P [id number] S [id number] UMR P [id number] S [id number] [address] [facility] [employer] [id number] Self [id number] ID IDENTIFICATION ID IDENTIFICATION [id number] Other Insurance ID IDENTIFICATION [facility] PLAN [facility] PLAN [id number] Commercial Insurance [facility] [id number] R [facility] [id number] SP [id number] R [facility] [id number] SP [id number] D [employer] S [id number] S [id number] UMR [facility] [id number] SP [id number] D UMR S [id number] S [id number] 2 UMR P [id number] S [id number] 2 UMR [facility] [id number] SP [id number] Umr Commercial [id number] Self [id number] UMR [id number] Commercial Insurance [id number] ID IDENTIFICATION [id number] Other Insurance [id number] [facility] [id number] Comme rcial Insurance [id number] [facility] [id number] Commercial [facility] [id number] [facility] [id number] Self [id number] [employer] [id number] SP [id number] [facility] Health Maintenance Organization (HMO) [id number] Self [id number] Problems, Conditions, and Diagnoses Code Display Name Description Problem Type Effective Dates Data Source(s) N97.9 Female infertility Infertility, female, primary Proble m 08/22/2021 12:00:00 AM EDT [facility] Surgeries/Procedures No Information Results ID Date Data Source [id number] 04/11/2021 08:44:00 AM EDT [place] ([facility]) Name Value Range Interpretation Code Description Data Hilary rce(s) Supporting Document(s) Leukocytes [#/volume] in Blood by Automated count 4.9 thousand/uL 3 .8-10.8 White Blood Cell Count [place] ([facility]) Erythrocytes [#/volume] in Blood by Automated count 4.83 million/uL 3.80-5.10 Red Blood Cell Count [place] ([facility]) Erythrocyte mean corpuscular volume [Entitic volume] by Auto mated count 87.0 fL 80.0-100.0 Mcv [place] ([facility]) Hemoglobin [Mass/volume] in Blood 14.0 g/dL 11.7-15.5 He moglobin [place] ([facility]) Hematocrit [Volume Fraction] of Blood by Automated count 42.0 % 35.0-45.0 Hematocrit [place] ([facility]) Erythrocyte mean corpuscular hemoglobin [Entitic mass] by Automated count 29.0 pg 27.0-33.0 Mch [place] ([facility]) Erythrocyte mean corpuscular hemoglobin concentration [Mass/volume] by Automated count 33.3 g/dL 32.0-36.0 Mchc [place] ([facility]) Erythrocyte distribution width [Ratio] by Automated count 12.6 % 11.0-15.0 Rdw [place] ([facility]) Platelet mean volume [Entitic volume] in Blood by Mariana 9.9 fL 7.5-12.5 Mpv [place] ([facility]) Neutrophils [#/volume] in Blood by Automated count 3033 cells/uL 15 00-7800 Absolute Neutrophils [place] ([facility]) Platelets [#/volume] in Blood by Automated count 250 thousand/uL 14 0-400 Platelet Count [place] ([facility]) Lymphocytes [#/volume] in Blood by Automated count 1397 cells/uL 85 0-3900 Absolute Lymphocytes [place] ([facility]) Monocytes [#/volume] in Blood by Automated count 470 cells/uL 200-9 50 Absolute Monocytes [place] ([facility]) Eosinophils [#/volume] in Blood by Automated count 0 cells/uL 15-500 Below low normal Absolute Eosinophils [place] ([facility]) Neutrophils/100 leukocytes in Blood by Automated count 61.9 % 38-80 Neutrophils [facility] ([facility]) Lymphocytes/100 leukocytes in Blood by Automated count 28.5 % 15-49 Lymphocytes [facility] ([facility]) Basophils [#/volume] in Blood by Automated count 0 cells/uL 0-200 Absolute Basophils [facility] ([facility]) Monocytes/100 leukocytes in Blood by Automated count 9.6 % 0-13 Monocytes [place] ([facility]) Basophils/100 leukocytes in Blood by Automated count 0.0 % 0-2 Basophils [place] ([facility]) Eosinophils/100 leukocytes in Blood by Automated count 0.0 % 0-8 Eosinophils [facility] ([facility]) ID Date Data Source [id number] 04/11/2021 08:44:00 AM EDT [place] ([facility]) Name Value Range Interpretation Code Description Data Hilary rce(s) Supporting Document(s) Glucose [Mass/volume] in Serum or Plasma 92 mg/dL 65-99 [facility] Glomerular filtration rate/1.73 sq M.pre dicted among non-blacks [Volume Rate/Area] in Serum, Plasma or Blood by Creatinine-based formula (CKD-EPI) 120 mL/min/1.73m2 > or = 60 eGFR Non-afr. [place] ([facility]) Creatinine [Mass/volume] in Serum or Plasma 0.61 mg/dL 0.50-1.10 Creatinine [place] ([facility]) Urea nitrogen [Mass/volume] in Serum or Plasma 18 mg/dL 7-25 Urea Nitrogen (BUN) [facility] Sodium [Moles/volume] in Serum or Plasma 140 mmol/L 135-146 Sodium [place] ([facility]) Urea nitrogen/Creatinine [Mass Ratio] in Serum or Plasma not applic able 6-22 BUN/creatinine Ratio [place] ([facility]) Glomerular filtration rate/1.73 sq M.pre dicted among blacks [Volume Rate/Area] in Serum, Plasma or Blood by Creatinine-based formula (CKD-EPI) 139 mL/min/1.73m2 > or = 60 eGFR [place] (No Count includes the [facility]) Chloride [Moles/volume] in Serum or Plasma 104 mmol/L 98-110 Chloride [place] ([facility]) Potassium [Moles/volume] in Serum or Plasma 4.7 mmol/L 3.5-5.3 Potassium [place] ([facility]) Carbon dioxide, total [Moles/volume] in Serum or Plasma 27 mmol/L 20-32 Carbon Dioxide [place] ([facility]) Calcium [Mass/volume] in Serum or Plasma 9.2 mg/dL 8.6-10.2 Calcium [place] ([facility]) Protein [Mass/volume] in Serum or Plasma 6.9 g/dL 6.1-8.1 Protein, Total [place] ([facility]) Globulin [Mass/volume] in Serum by calculation 2.5 g/dL_(calc) 1.9- 3.7 Globulin [place] ([facility]) Albumin [Mass/volume] in Serum or Plasma 4.4 g/dL 3.6-5.1 Albumin [place] ([facility]) Albumin/Globulin [Mass Ratio] in Serum or Plasma 1.8 (calc) 1.0-2 .5 Albumin/globulin Ratio [place] ([facility]) Bilirubin.total [Mass/volume] in Serum or Plasma 0.6 mg/dL 0.2-1 .2 Bilirubin, Total [place] ([facility]) Alkaline phosphatase [Enzymatic activity/volume] in Serum or Plasma 81 U/L 31-125 Alkaline Phosphatase [facility] ([facility]) Alanine aminotransferase [Enzymatic activity/volume] in Seru m or Plasma 14 U/L 6-29 Alt [place] ([facility]) Aspartate aminotransferase [Enzymatic activity/volume] in Serum or Plasma 15 U/L 10-30 Ast [place] ([facility]) ID Date Data Source [id number] 04/11/2021 08:44:00 AM EDT [place] ([facility]) Name Value Range Interpretation Code Description Data Hilary rce(s) Supporting Document(s) Cholesterol [Mass/volume] in Serum or Plasma 197 mg/dL <200 Cholesterol, Total [place] ([facility]) Cholesterol in HDL [Mass/volume] in Serum or Plasma 53 mg/dL > or = 50 HDL Cholesterol [place] ([facility]) Triglyceride [Mass/volume] in Serum or Plasma 70 mg/dL <150 Triglycerides [place] ([facility]) Cholesterol non HDL [Mass/volume] in Serum or Plasma 144 mg/dL_( calc) <130 Above high normal Non HDL Cholesterol [facility] ([facility]) Cholesterol.total/Cholesterol in HDL [Mass Ratio] in Serum o r Plasma 3.7 calc <5.0 Chol/hdlc Ratio [place] ([facility]) Cholesterol in LDL [Mass/volume] in Serum or Plasma by calculation 128 mg/dL_(calc) <100 Above high normal LDL-cholesterol [place] ([facility]) ID Date Data Source [id number] 04/11/2021 08:44:00 AM EDT [place] ([facility]) Name Value Range Interpretation Code Description Data Hilary rce(s) Supporting Document(s) Erythrocytes [#/volume] in Blood by Automated count 4.83 million/uL 3.80-5.10 Red Blood Cell Count [place] ([facility]) Hemoglobin [Mass/volume] in Blood 14.0 g/dL 11.7-15.5 He moglobin [place] ([facility]) Leukocytes [#/volume] in Blood by Automated count 4.9 thousand/uL 3 .8-10.8 White Blood Cell Count [place] ([facility]) Erythrocyte mean corpuscular hemoglobin [Entitic mass] by Automated count 29.0 pg 27.0-33.0 Mch [facility] ([facility]) Hematocrit [Volume Fraction] of Blood by Automated count 42.0 % 35.0-45.0 Hematocrit [facility] ([facility]) Erythrocyte mean corpuscular volume [Entitic volume] by Auto mated count 87.0 fL 80.0-100.0 Mcv [facility] ([facility]) Platelet mean volume [Entitic volume] in Blood by [place] 9.9 fL 7.5-12.5 Mpv [facility] ([facility]) Erythrocyte distribution width [Ratio] by Automated count 12.6 % 11.0-15.0 Rdw [facility] ([facility]) Erythrocyte mean corpuscular hemoglobin concentration [Mass/volume] by Automated count 33.3 g/dL 32.0-36.0 Mchc EL[facility] ([facility]) Platelets [#/volume] in Blood by Automated count 250 thousand/uL 14 0-400 Platelet Count [facility] ([facility]) Lymphocytes [#/volume] in Blood by Automated count 1397 cells/uL 85 0-3900 Absolute Lymphocytes [facility] ([facility]) Monocytes [#/volume] in Blood by Automated count 470 cells/uL 200-9 50 Absolute Monocytes [facility] ([facility]) Neutrophils [#/volume] in Blood by Automated count 3033 cells/uL 15 00-7800 Absolute Neutrophils [facility] ([facility]) Eosinophils [#/volume] in Blood by Automated count 0 cells/uL 15-500 Below low normal Absolute Eosinophils [facility] ([facility]) Basophils [#/volume] in Blood by Automated count 0 cells/uL 0-200 Absolute Basophils [facility] ([facility]) Neutrophils/100 leukocytes in Blood by Automated count 61.9 % 38-80 Neutrophils [facility] ([facility]) Eosinophils/100 leukocytes in Blood by Automated count 0.0 % 0-8 Eosinophils [facility] ([facility]) Monocytes/100 leukocytes in Blood by Automated count 9.6 % 0-13 Monocytes [facility] ([facility]) Lymphocytes/100 leukocytes in Blood by Automated count 28.5 % 15-49 Lymphocytes [facility] ([facility]) Basophils/100 leukocytes in Blood by Automated count 0.0 % 0-2 Basophils [facility] ([facility]) ID Date Data Source [id number] 04/11/2021 08:44:00 AM EDT [facility] ([facility]) Name Value Range Interpretation Code Description Data Hilary rce(s) Supporting Document(s) Urea nitrogen [Mass/volume] in Serum or Plasma 18 mg/dL 7-25 Urea Nitrogen (BUN) [facility] ([facility]) Glucose [Mass/volume] in Serum or Plasma 92 mg/dL 65-99 Glucose [facility] ([facility]) Creatinine [Mass/volume] in Serum or Plasma 0.61 mg/dL 0.50-1.10 Creatinine [facility] ([facility]) Glomerular filtration rate/1.73 sq M.pre dicted among blacks [Volume Rate/Area] in Serum, Plasma or Blood by Creatinine-based formula (CKD-EPI) 139 mL/min/1.73m2 > or = 60 eGFR [facility] (No Count includes the [facility]) Glomerular filtration rate/1.73 sq M.pre dicted among non-blacks [Volume Rate/Area] in Serum, Plasma or Blood by Creatinine-based formula (CKD-EPI) 120 mL/min/1.73m2 > or = 60 eGFR Non-afr. [place] [facility] ([facility]) Urea nitrogen/Creatinine [Mass Ratio] in Serum or Plasma not applic able 6-22 BUN/creatinine Ratio [place] ([facility]) Sodium [Moles/volume] in Serum or Plasma 140 mmol/L 135-146 Sodium [place] ([facility]) Calcium [Mass/volume] in Serum or Plasma 9.2 mg/dL 8.6-10.2 Calcium [place] ([facility]) Potassium [Moles/volume] in Serum or Plasma 4.7 mmol/L 3.5-5.3 Potassium [facility] ([facility]) Carbon dioxide, total [Moles/volume] in Serum or Plasma 27 mmol/L 20-32 Carbon Dioxide [place] ([facility]) Chloride [Moles/volume] in Serum or Plasma 104 mmol/L 98-110 Chloride [place] ([facility]) Albumin [Mass/volume] in Serum or Plasma 4.4 g/dL 3.6-5.1 Albumin [place] ([facility]) Protein [Mass/volume] in Serum or Plasma 6.9 g/dL 6.1-8.1 [facility], [facility] Globulin [Mass/volume] in Serum by calculation 2.5 g/dL_(calc) 1.9- 3.7 Globulin [place] ([facility]) Albumin/Globulin [Mass Ratio] in Serum or Plasma 1.8 (calc) 1.0-2 .5 Albumin/globulin Ratio [facility]) Bilirubin.total [Mass/volume] in Serum or Plasma 0.6 mg/dL 0.2-1 .2 Bilirubin, Total [facility] ([facility]) Alkaline phosphatase [Enzymatic activity/volume] in Serum or Plasma 81 U/L 31-125 Alkaline Phosphatase [facility] ([facility]) Alanine aminotransferase [Enzymatic activity/volume] in Seru m or Plasma 14 U/L 6-29 Alt EL[facility] ([facility]) Aspartate aminotransferase [Enzymatic activity/volume] in Serum or Plasma 15 U/L 10-30 Ast [facility] ([facility]) ID Date Data Source [id number] 04/11/2021 08:44:00 AM EDT [facility] ([facility]) Name Value Range Interpretation Code Description Data Hilary rce(s) Supporting Document(s) Cholesterol [Mass/volume] in Serum or Plasma 197 mg/dL <200 Cholesterol, Total [facility] ([facility]) Cholesterol in HDL [Mass/volume] in Serum or Plasma 53 mg/dL > or = 50 HDL Cholesterol [facility] ([facility]) Cholesterol in LDL [Mass/volume] in Serum or Plasma by calculation 128 mg/dL_(calc) <100 Above high normal LDL-cholesterol [facility] ([facility]) Triglyceride [Mass/volume] in Serum or Plasma 70 mg/dL <150 Triglycerides [facility] ([facility]) Cholesterol.total/Cholesterol in HDL [Mass Ratio] in Serum o r Plasma 3.7 calc <5.0 Chol/hdlc Ratio [facility] ([facility]) Cholesterol non HDL [Mass/volume] in Serum or Plasma 144 mg/dL_( calc) <130 Above high normal Non HDL Cholesterol [facility] ([facility]) ID Date Data Source [id number] 01/07/2021 08:10:00 AM EST [facility] ([facility]) Name Value Range Interpretation Code Description Data Hilary rce(s) Supporting Document(s) total 25(oh) vitamin D 21.4 NG/mL 30.0-100.0 Below low normal T otal 25(Oh) Vitamin D [facility] ID Date Data Source [id number] 01/07/2021 08:10:00 AM EST [facility] ([facility]) Name Value Range Interpretation Code Description Data Hilary rce(s) Supporting Document(s) thyroid stimulating hormone 2.280 uIU/mL 0.358-3.740 Thyroid Stimulating Hormone [facility] ([facility]) free T4 0.85 NG/dL 0.76-1.46 Free T4 [facility] ([facility]) ID Date Data Source [id number] 01/07/2021 08:10:00 AM EST [facility] ([facility]) Name Value Range Interpretation Code Description Data Hilary rce(s) Supporting Document(s) cholesterol level 204 mg/dL <200 Above high normal Cholesterol Level [facility] ([facility]) HDL cholesterol 59 mg/dL >40 HDL Cholesterol AT[facility] ([facility]) triglycerides level 52 mg/dL <150 Triglycerides [place] susy [facility] ([facility]) non-HDL-C 145 mg/dL Non-hdl-c [facility] ([facility]) cholesterol risk ratio <5 Cholesterol R isk Ratio [facility] ([facility]) Cholesterol in LDL [Mass/volume] in Serum or Plasma 135 mg/dL <100 Above high normal LDL Cholesterol [facility] ([facility]) ID Date Data Source [id number] 01/07/2021 08:10:00 AM EST [place] ([facility]) Name Value Range Interpretation Code Description Data Hilary rce(s) Supporting Document(s) blood urea nitrogen 21 mg/dL 7-18 Above high normal Blood Ure a Nitrogen [facility] ([facility]) glucose, fasting 98 mg/dL 70-100 Glucose, Fasting AT [facility] ([facility]) potassium serum 4.2 mEq/L 3.5-5.1 Potassium Serum [facility] ([facility]) creatinine for GFR 0.68 mg/dL 0.55-1.30 Creatinine for GF R EL[facility] ([facility]) sodium level 140 mEq/L 136-145 Sodium Level [facility] ([facility]) glomerular filtration rate > 60.0 >60 Glomerula r Filtration Rate [facility] ([facility]) AST/SGOT 10 U/L 7-37 AST/SGOT [facility] ([facility]) carbon dioxide level 29 mEq/L 21-32 Carbon Dioxide Level [facility] ([facility]) anion gap 3 mEq/L 8-16 Below low normal Anion Gap [facility] ( [facility]) calcium level 9.2 mg/dL 8.5-10.1 Calcium Level [facility] ( [facility]) chloride level 108 mEq/L 98-107 Above high normal Chloride Level [facility] ([facility]) total protein 7.3 gm/dL 6.4-8.2 Total Protein [facility] ( [facility]) ALT/SGPT 20 U/L 12-78 ALT/SGPT [facility] ([facility]) alkaline phosphatase 80 U/L 45-117 Alkaline Phosph atase [facility] ([facility]) albumin 4.2 gm/dL 3.2-5.2 Albumin [facility] ([facility]) bilirubin,total 0.4 mg/dL 0.2-1.0 Bilirubin,total [facility] ([facility]) albumin/globulin ratio 1.2-2.2 Albumin/globu rupa Ratio [facility] ([facility]) ID Date Data Source [id number] 01/07/2021 08:10:00 AM EST [facility] ([facility]) Name Value Range Interpretation Code Description Data Hilary rce(s) Supporting Document(s) red blood count 5.01 10 4.00-5.40 Red Blood Count [place] ([facility]) white blood count 4.9 10 4.0-10.0 White Blood Count [facility] ([facility]) mean corpuscular hemoglobin 28.7 pg 27.0-33.0 Mean Cor puscular Hemoglobin [facility] ([facility]) hematocrit 43.2 % 36.0-47.0 Hematocrit [facility] ([facility]) mean corpuscular volume 86.2 fL 80.0-96.0 Mean Corpusc ular Volume [facility] ([facility]) hemoglobin 14.4 g/dL 12.0-15.5 Hemoglobin [facility] ([facility]) mean corpuscular HGB conc 33.3 g/dL 32.0-36.5 Mean Corpu scular HGB Conc [facility] ([facility]) red cell distribution width 12.7 % 11.5-14.5 Red Cell Distribution Width [facility] ([facility]) platelet count, automated 236 10 150-450 Platelet C ount, Automated [facility] ([facility]) mono % 10.5 % 2.0-8.0 Above high normal [place] % [place] ([facility]) lymph % 27.4 % 24.0-44.0 Lymph % [facility] ([facility]) eos % 0.0 % 0.0-3.0 Eos % [place] ([facility]) neutrophils % 61.7 % 36.0-66.0 Neutrophils % [place] ( [facility]) baso % 0.2 % 0.0-1.0 Baso % [place] ([facility]) immature granulocyte % 0.2 % 0-3.0 Immature Gran ulocyte % [facility] ([facility]) nucleated red blood cell % 0.0 % 0-0 Nucleated Red Blood Cell % [place] ([facility]) neutrophils # 3.0 10 1.5-8.5 Neutrophils # [place] ( [facility]) mono # 0.5 10 0.0-0.8 [place] # [place] ([facility]) baso # 0.0 10 0.0-0.2 Baso # [facility] ([facility]) eos # 0.0 10 0.0-0.5 Eos # [facility] ([facility]) lymph # 1.3 10 1.5-5.0 Below low normal Lymph # [place] ( [facility]) ID Date Data Source [id number] 01/07/2021 08:10:00 AM EST [place] ([facility]) Name Value Range Interpretation Code Description Data Hilary rce(s) Supporting Document(s) total 25(oh) vitamin D 21.4 NG/mL 30.0-100.0 Below low normal T otal 25(Oh) Vitamin D [facility] ([facility]) ID Date Data Source [id number] 01/07/2021 08:10:00 AM EST [place] ([facility]) Name Value Range Interpretation Code Description Data Hilary rce(s) Supporting Document(s) thyroid stimulating hormone 2.280 uIU/mL 0.358-3.740 Thyroid Stimulating Hormone [facility] ([facility]) free T4 0.85 NG/dL 0.76-1.46 Free T4 [facility] ([facility]) ID Date Data Source [id number] 01/07/2021 08:10:00 AM EST [place] ([facility]) Name Value Range Interpretation Code Description Data Hilary rce(s) Supporting Document(s) HDL cholesterol 59 mg/dL >40 HDL Cholesterol ATHE NA ([facility]) triglycerides level 52 mg/dL <150 Triglycerides [place] susy [facility] ([facility]) cholesterol level 204 mg/dL <200 Above high normal Cholesterol Level [facility] ([facility]) Cholesterol in LDL [Mass/volume] in Serum or Plasma 135 mg/dL <100 Above high normal LDL Cholesterol [facility] ([facility]) cholesterol risk ratio <5 Cholesterol R isk Ratio [facility] ([facility]) non-HDL-C 145 mg/dL Non-hdl-c [facility] ([facility]) ID Date Data Source [id number] 01/07/2021 08:10:00 AM EST [facility] ([facility]) Name Value Range Interpretation Code Description Data Hilary rce(s) Supporting Document(s) creatinine for GFR 0.68 mg/dL 0.55-1.30 Creatinine for GF R [facility] ([facility]) glucose, fasting 98 mg/dL 70-100 Glucose, Fasting AT [place] ([facility]) blood urea nitrogen 21 mg/dL 7-18 Above high normal Blood Ure a Nitrogen [facility] ([facility]) potassium serum 4.2 mEq/L 3.5-5.1 Potassium Serum ATHE NA ([facility]) chloride level 108 mEq/L 98-107 Above high normal Chloride Level [facility] ([facility]) sodium level 140 mEq/L 136-145 Sodium Level [facility] ([facility]) glomerular filtration rate > 60.0 >60 Glomerula r Filtration Rate [facility] ([facility]) carbon dioxide level 29 mEq/L 21-32 Carbon Dioxide Level [facility] ([facility]) anion gap 3 mEq/L 8-16 Below low normal Anion Gap [facility] ( [facility]) AST/SGOT 10 U/L 7-37 AST/SGOT [facility] ([facility]) calcium level 9.2 mg/dL 8.5-10.1 Calcium Level [facility] ( [facility]) total protein 7.3 gm/dL 6.4-8.2 Total Protein [facility] ( [facility]) ALT/SGPT 20 U/L 12-78 ALT/SGPT [facility] ([facility]) bilirubin,total 0.4 mg/dL 0.2-1.0 Bilirubin,total ATHE NA ([facility]) alkaline phosphatase 80 U/L 45-117 Alkaline Phosph atase [facility] ([facility]) albumin 4.2 gm/dL 3.2-5.2 Albumin [facility] ([facility]) albumin/globulin ratio 1.2-2.2 Albumin/globu rupa Ratio [facility] ([facility]) ID Date Data Source [id number] 01/07/2021 08:10:00 AM EST [facility] ([facility]) Name Value Range Interpretation Code Description Data Hilary rce(s) Supporting Document(s) white blood count 4.9 10 4.0-10.0 White Blood Count [facility] ([facility]) red blood count 5.01 10 4.00-5.40 Red Blood Count ATHE NA ([facility]) hemoglobin 14.4 g/dL 12.0-15.5 Hemoglobin [facility] ([facility]) mean corpuscular hemoglobin 28.7 pg 27.0-33.0 Mean Cor puscular Hemoglobin [facility] ([facility]) hematocrit 43.2 % 36.0-47.0 Hematocrit [facility] ([facility]) mean corpuscular volume 86.2 fL 80.0-96.0 Mean Corpusc ular Volume [facility] ([facility]) mean corpuscular HGB conc 33.3 g/dL 32.0-36.5 Mean Corpu scular HGB Conc [facility] ([facility]) platelet count, automated 236 10 150-450 Platelet C ount, Automated [facility] ([facility]) lymph % 27.4 % 24.0-44.0 Lymph % [facility] ([facility]) red cell distribution width 12.7 % 11.5-14.5 Red Cell Distribution Width [facility] ([facility]) neutrophils % 61.7 % 36.0-66.0 Neutrophils % [place] ( [facility]) mono % 10.5 % 2.0-8.0 Above high normal [place] % [facility] ([facility]) eos % 0.0 % 0.0-3.0 Eos % [place] ([facility]) immature granulocyte % 0.2 % 0-3.0 Immature Gran ulocyte % [facility] ([facility]) baso % 0.2 % 0.0-1.0 Baso % [place] ([facility]) nucleated red blood cell % 0.0 % 0-0 Nucleated Red Blood Cell % [facility] ([facility]) mono # 0.5 10 0.0-0.8 [place] # [facility] ([facility]) neutrophils # 3.0 10 1.5-8.5 Neutrophils # [facility] ( [facility]) lymph # 1.3 10 1.5-5.0 Below low normal Lymph # [facility] ( [facility]) baso # 0.0 10 0.0-0.2 Baso # [facility] ([facility]) eos # 0.0 10 0.0-0.5 Eos # [facility] ([facility]) ID Date Data Source [id number] 01/07/2021 08:10:00 AM EST [facility] ([facility]) Name Value Range Interpretation Code Description Data Hilary rce(s) Supporting Document(s) total 25(oh) vitamin D 21.4 NG/mL 30.0-100.0 Below low normal T otal 25(Oh) Vitamin D [facility] ([facility]) ID Date Data Source [id number] 01/07/2021 08:10:00 AM EST [facility] ([facility]) Name Value Range Interpretation Code Description Data Hilary rce(s) Supporting Document(s) thyroid stimulating hormone 2.280 uIU/mL 0.358-3.740 Thyroid Stimulating Hormone [facility] ([facility]) free T4 0.85 NG/dL 0.76-1.46 Free T4 [facility] ([facility]) ID Date Data Source [id number] 01/07/2021 08:10:00 AM EST [facility] ([facility]) Name Value Range Interpretation Code Description Data Hilary rce(s) Supporting Document(s) cholesterol level 204 mg/dL <200 Above high normal Cholesterol Level [facility] ([facility]) triglycerides level 52 mg/dL <150 Triglycerides [place] susy [facility] ([facility]) cholesterol risk ratio <5 Cholesterol R isk Ratio [facility] ([facility]) Cholesterol in LDL [Mass/volume] in Serum or Plasma 135 mg/dL <100 Above high normal LDL Cholesterol [facility] ([facility]) non-HDL-C 145 mg/dL Non-hdl-c [facility] ([facility]) HDL cholesterol 59 mg/dL >40 HDL Cholesterol ATHE ([facility]) ID Date Data Source [id number] 01/07/2021 08:10:00 AM EST [facility] ([facility]) Name Value Range Interpretation Code Description Data Hilary rce(s) Supporting Document(s) glucose, fasting 98 mg/dL 70-100 Glucose, Fasting AT [facility] ([facility]) creatinine for GFR 0.68 mg/dL 0.55-1.30 Creatinine for GF R [facility] ([facility]) blood urea nitrogen 21 mg/dL 7-18 Above high normal Blood Ure a Nitrogen [facility] ([facility]) sodium level 140 mEq/L 136-145 Sodium Level [facility] ([facility]) chloride level 108 mEq/L 98-107 Above high normal Chloride Level [facility] ([facility]) glomerular filtration rate > 60.0 >60 Glomerula r Filtration Rate [facility] ([facility]) potassium serum 4.2 mEq/L 3.5-5.1 Potassium Serum ATHE NA ([facility]) calcium level 9.2 mg/dL 8.5-10.1 Calcium Level [facility] ( [facility]) carbon dioxide level 29 mEq/L 21-32 Carbon Dioxide Level [facility] ([facility]) AST/SGOT 10 U/L 7-37 AST/SGOT [facility] ([facility]) anion gap 3 mEq/L 8-16 Below low normal Anion Gap [facility] ( [facility]) ALT/SGPT 20 U/L 12-78 ALT/SGPT [facility] ([facility]) total protein 7.3 gm/dL 6.4-8.2 Total Protein [facility] ( [facility]) alkaline phosphatase 80 U/L 45-117 Alkaline Phosph atase [facility] ([facility]) bilirubin,total 0.4 mg/dL 0.2-1.0 Bilirubin,total ATHE ([facility]) albumin/globulin ratio 1.2-2.2 Albumin/globu rupa Ratio [facility] ([facility]) albumin 4.2 gm/dL 3.2-5.2 Albumin [facility] ([facility]) ID Date Data Source [id number] 01/07/2021 08:10:00 AM EST [facility] ([facility]) Name Value Range Interpretation Code Description Data Hilary rce(s) Supporting Document(s) white blood count 4.9 10 4.0-10.0 White Blood Count [facility] ([facility]) red blood count 5.01 10 4.00-5.40 Red Blood Count ATHE NA ([facility]) hemoglobin 14.4 g/dL 12.0-15.5 Hemoglobin [facility] ([facility]) hematocrit 43.2 % 36.0-47.0 Hematocrit [facility] ([facility]) mean corpuscular hemoglobin 28.7 pg 27.0-33.0 Mean Cor puscular Hemoglobin [facility] ([facility]) mean corpuscular volume 86.2 fL 80.0-96.0 Mean Corpusc ular Volume [facility] ([facility]) mean corpuscular HGB conc 33.3 g/dL 32.0-36.5 Mean Corpu scular HGB Conc [facility] ([facility]) red cell distribution width 12.7 % 11.5-14.5 Red Cell Distribution Width [facility] ([facility]) neutrophils % 61.7 % 36.0-66.0 Neutrophils % [facility] ( [facility]) platelet count, automated 236 10 150-450 Platelet C ount, Automated [facility] ([facility]) eos % 0.0 % 0.0-3.0 Eos % [facility] ([facility]) mono % 10.5 % 2.0-8.0 Above high normal [place] % [facility] ([facility]) baso % 0.2 % 0.0-1.0 Baso % [facility] ([facility]) lymph % 27.4 % 24.0-44.0 Lymph % [facility] ([facility]) neutrophils # 3.0 10 1.5-8.5 Neutrophils # [facility] ( [facility]) immature granulocyte % 0.2 % 0-3.0 Immature Gran ulocyte % [facility] ([facility]) nucleated red blood cell % 0.0 % 0-0 Nucleated Red Blood Cell % [facility] ([facility]) eos # 0.0 10 0.0-0.5 Eos # [facility] ([facility]) baso # 0.0 10 0.0-0.2 Baso # [facility] ([facility]) lymph # 1.3 10 1.5-5.0 Below low normal Lymph # [facility] ( [facility]) mono # 0.5 10 0.0-0.8 [place] # [facility] ([facility]) ID Date Data Source [id number] 01/07/2021 08:10:00 AM EST [facility] ([facility]) Name Value Range Interpretation Code Description Data Hilary rce(s) Supporting Document(s) total 25(oh) vitamin D 21.4 NG/mL 30.0-100.0 Below low normal T otal 25(Oh) Vitamin D [facility] ([facility]) ID Date Data Source [id number] 01/07/2021 08:10:00 AM EST [facility] ([facility]) Name Value Range Interpretation Code Description Data Hilary rce(s) Supporting Document(s) thyroid stimulating hormone 2.280 uIU/mL 0.358-3.740 Thyroid Stimulating Hormone [facility] ([facility]) free T4 0.85 NG/dL 0.76-1.46 Free T4 [facility] ([facility]) ID Date Data Source [id number] 01/07/2021 08:10:00 AM EST [facility] ([facility]) Name Value Range Interpretation Code Description Data Hilary rce(s) Supporting Document(s) triglycerides level 52 mg/dL <150 Triglycerides [place] sus[place] [facility] ([facility]) Cholesterol in LDL [Mass/volume] in Serum or Plasma 135 mg/dL <100 Above high normal LDL Cholesterol [facility] ([facility]) cholesterol risk ratio <5 Cholesterol R isk Ratio [facility] ([facility]) HDL cholesterol 59 mg/dL >40 HDL Cholesterol ATHE NA ([facility]) non-HDL-C 145 mg/dL Non-hdl-c [facility] ([facility]) cholesterol level 204 mg/dL <200 Above high normal Cholesterol Level [facility] ([facility]) ID Date Data Source [id number] 01/07/2021 08:10:00 AM EST [facility] ([facility]) Name Value Range Interpretation Code Description Data Hilary rce(s) Supporting Document(s) glucose, fasting 98 mg/dL 70-100 Glucose, Fasting AT [place] ([facility]) blood urea nitrogen 21 mg/dL 7-18 Above high normal Blood Ure a Nitrogen [facility] ([facility]) creatinine for GFR 0.68 mg/dL 0.55-1.30 Creatinine for GF R [facility] ([facility]) glomerular filtration rate > 60.0 >60 Glomerula r Filtration Rate [facility] ([facility]) potassium serum 4.2 mEq/L 3.5-5.1 Potassium Serum ATHE NA ([facility]) sodium level 140 mEq/L 136-145 Sodium Level [facility] ([facility]) anion gap 3 mEq/L 8-16 Below low normal Anion Gap [facility] ( [facility]) chloride level 108 mEq/L 98-107 Above high normal Chloride Level [facility] ([facility]) carbon dioxide level 29 mEq/L 21-32 Carbon Dioxide Level [facility] ([facility]) calcium level 9.2 mg/dL 8.5-10.1 Calcium Level [facility] ( [facility]) AST/SGOT 10 U/L 7-37 AST/SGOT [facility] ([facility]) total protein 7.3 gm/dL 6.4-8.2 Total Protein [facility] ( [facility]) bilirubin,total 0.4 mg/dL 0.2-1.0 Bilirubin,total ATHE ([facility]) alkaline phosphatase 80 U/L 45-117 Alkaline Phosph atase [facility] ([facility]) ALT/SGPT 20 U/L 12-78 ALT/SGPT [facility] ([facility]) albumin/globulin ratio 1.2-2.2 Albumin/globu rupa Ratio [facility] ([facility]) albumin 4.2 gm/dL 3.2-5.2 Albumin [facility] ([facility]) ID Date Data Source [id number] 01/07/2021 08:10:00 AM [facility] Name Value Range Interpretation Code Description Data Hilary rce(s) Supporting Document(s) hemoglobin 14.4 g/dL 12.0-15.5 Hemoglobin [facility] ([facility]) red blood count 5.01 10 4.00-5.40 Red Blood Count ATHE NA ([facility]) white blood count 4.9 10 4.0-10.0 White Blood Count [facility] ([facility]) mean corpuscular hemoglobin 28.7 pg 27.0-33.0 Mean Cor puscular Hemoglobin [facility] ([facility]) mean corpuscular volume 86.2 fL 80.0-96.0 Mean Corpusc ular Volume [facility] ([facility]) hematocrit 43.2 % 36.0-47.0 Hematocrit [facility] ([facility]) mean corpuscular HGB conc 33.3 g/dL 32.0-36.5 Mean Corpu scular HGB Conc [facility] ([facility]) platelet count, automated 236 10 150-450 Platelet C ount, Automated [facility] ([facility]) red cell distribution width 12.7 % 11.5-14.5 Red Cell Distribution Width [facility] ([facility]) neutrophils % 61.7 % 36.0-66.0 Neutrophils % [facility] ( [facility]) lymph % 27.4 % 24.0-44.0 Lymph % [facility] ([facility]) baso % 0.2 % 0.0-1.0 Baso % [facility] ([facility]) eos % 0.0 % 0.0-3.0 Eos % [facility] ([facility]) mono % 10.5 % 2.0-8.0 Above high normal [place] % [facility] ([facility]) neutrophils # 3.0 10 1.5-8.5 Neutrophils # [facility] ( [facility]) immature granulocyte % 0.2 % 0-3.0 Immature Gran ulocyte % [facility] ([facility]) lymph # 1.3 10 1.5-5.0 Below low normal Lymph # [facility] ( [facility]) nucleated red blood cell % 0.0 % 0-0 Nucleated Red Blood Cell % [facility] ([facility]) eos # 0.0 10 0.0-0.5 Eos # [facility] ([facility]) baso # 0.0 10 0.0-0.2 Baso # [facility] ([facility]) mono # 0.5 10 0.0-0.8 [place] # [facility] ([facility]) ID Date Data Source [id number] 01/07/2021 08:10:00 AM EST [facility] ([facility]) Name Value Range Interpretation Code Description Data Hilary rce(s) Supporting Document(s) total 25(oh) vitamin D 21.4 NG/mL 30.0-100.0 Below low normal T otal 25(Oh) Vitamin D [facility] ([facility]) ID Date Data Source [id number] 01/07/2021 08:10:00 AM EST [facility] ([facility]) Name Value Range Interpretation Code Description Data Hilary rce(s) Supporting Document(s) thyroid stimulating hormone 2.280 uIU/mL 0.358-3.740 Thyroid Stimulating Hormone [facility] ([facility]) free T4 0.85 NG/dL 0.76-1.46 Free T4 [facility] ([facility]) ID Date Data Source [id number] 01/07/2021 08:10:00 AM EST [facility] ([facility]) Name Value Range Interpretation Code Description Data Hilary rce(s) Supporting Document(s) HDL cholesterol 59 mg/dL >40 HDL Cholesterol ATHE NA ([facility]) cholesterol level 204 mg/dL <200 Above high normal Cholesterol Level [facility] ([facility]) triglycerides level 52 mg/dL <150 Triglycerides [place] [facility] ([facility]) Cholesterol in LDL [Mass/volume] in Serum or Plasma 135 mg/dL <100 Above high normal LDL Cholesterol [facility] ([facility]) non-HDL-C 145 mg/dL Non-hdl-c [facility] ([facility]) cholesterol risk ratio <5 Cholesterol R isk Ratio [facility] ([facility]) ID Date Data Source [id number] 01/07/2021 08:10:00 AM EST [facility] ([facility]) Name Value Range Interpretation Code Description Data Hilary rce(s) Supporting Document(s) glucose, fasting 98 mg/dL 70-100 Glucose, Fasting AT [facility]) blood urea nitrogen 21 mg/dL 7-18 Above high normal Blood Ure a Nitrogen [facility] ([facility]) sodium level 140 mEq/L 136-145 Sodium Level [facility] (No [facility] includes the [facility]) glomerular filtration rate > 60.0 >60 Glomerula r Filtration Rate [facility] ([facility]) creatinine for GFR 0.68 mg/dL 0.55-1.30 Creatinine for GF R [facility] ([facility]) potassium serum 4.2 mEq/L 3.5-5.1 Potassium Serum [facility] ([facility]) AST/SGOT 10 U/L 7-37 AST/SGOT [facility] ([facility]) carbon dioxide level 29 mEq/L 21-32 Carbon Dioxide Level [facility] ([facility]) calcium level 9.2 mg/dL 8.5-10.1 Calcium Level [facility] ( [facility]) anion gap 3 mEq/L 8-16 Below low normal Anion Gap [facility] ( [facility]) chloride level 108 mEq/L 98-107 Above high normal Chloride Level [facility] ([facility]) bilirubin,total 0.4 mg/dL 0.2-1.0 Bilirubin,total [facility] ([facility]) ALT/SGPT 20 U/L 12-78 ALT/SGPT [facility] ([facility]) total protein 7.3 gm/dL 6.4-8.2 Total Protein [facility] ( [facility]) albumin 4.2 gm/dL 3.2-5.2 Albumin [facility] ([facility]) alkaline phosphatase 80 U/L 45-117 Alkaline Phosph atase [facility] ([facility]) albumin/globulin ratio 1.2-2.2 Albumin/globu rupa Ratio [facility] ([facility]) ID Date Data Source [id number] 01/07/2021 08:10:00 AM EST [place] ([facility]) Name Value Range Interpretation Code Description Data Hilary rce(s) Supporting Document(s) white blood count 4.9 10 4.0-10.0 White Blood Count [facility] ([facility]) hemoglobin 14.4 g/dL 12.0-15.5 Hemoglobin [facility] ([facility]) hematocrit 43.2 % 36.0-47.0 Hematocrit [facility] ([facility]) red blood count 5.01 10 4.00-5.40 Red Blood Count [facility] ([facility]) red cell distribution width 12.7 % 11.5-14.5 Red Cell Distribution Width [facility] ([facility]) mean corpuscular hemoglobin 28.7 pg 27.0-33.0 Mean Cor puscular Hemoglobin [facility] ([facility]) mean corpuscular HGB conc 33.3 g/dL 32.0-36.5 Mean Corpu scular HGB Conc [facility] ([facility]) mean corpuscular volume 86.2 fL 80.0-96.0 Mean Corpusc ular Volume [facility] ([facility]) neutrophils % 61.7 % 36.0-66.0 Neutrophils % [place] ( [facility]) platelet count, automated 236 10 150-450 Platelet C ount, Automated [facility] ([facility]) lymph % 27.4 % 24.0-44.0 Lymph % [facility] ([facility]) mono % 10.5 % 2.0-8.0 Above high normal [place] % [facility] ([facility]) immature granulocyte % 0.2 % 0-3.0 Immature Gran ulocyte % [facility] ([facility]) eos % 0.0 % 0.0-3.0 Eos % [place] ([facility]) baso % 0.2 % 0.0-1.0 Baso % [facility] ([facility]) nucleated red blood cell % 0.0 % 0-0 Nucleated Red Blood Cell % [facility] ([facility]) mono # 0.5 10 0.0-0.8 [place] # [facility] ([facility]) neutrophils # 3.0 10 1.5-8.5 Neutrophils # [facility] ( [facility]) lymph # 1.3 10 1.5-5.0 Below low normal Lymph # [facility] ( [facility]) baso # 0.0 10 0.0-0.2 Baso # [facility] ([facility]) eos # 0.0 10 0.0-0.5 Eos # [facility] ([facility]) Procedure Social History Code Duration Value Status Description Data Source(s ) Smoking 08/22/2021 12:00:00 AM EDT Never Smoker completed Never S moker [facility] Vital Signs ID Date Data Source UNK Name Value Range Interpretation Code Description Data Source(s) Body weight 233 [lb_av] 233 [lb_av] [facility] ([facility]) Body height 63 [in_i] 63 [in_i] [facility] ([facility]) Body mass index (BMI) [Ratio] 41.27 kg/m2 41.27 kg/m2 [facility] Systolic blood pressure 108 mm[Hg] 108 mm[Hg] e [facility] ([facility]) Diastolic blood pressure 80 mm[Hg] 80 mm[Hg] eCW[facility] ([facility] Diastolic blood pressure 74 mm[Hg] 74 mm[Hg] [place] ([facility]) Body height 63 [in_i] 63 [in_i] [facility] ([facility]) Body mass index (BMI) [Ratio] 40.2 kg/m2 40.2 k g/m2 [facility] ([facility]) Systolic blood pressure 108 mm[Hg] 108 mm[Hg] A [facility] ([facility]) Body weight 3632 [oz_av] 3632 [oz_av] [facility] ([facility]) Diastolic blood pressure 70 mm[Hg] 70 mm[Hg] [facility] ([facility]) Body height 63 [in_i] 63 [in_i] [facility] ([facility]) Body mass index (BMI) [Ratio] 39.4 kg/m2 39.4 k g/m2 [facility] ([facility]) Systolic blood pressure 99 mm[Hg] 99 mm[Hg] A [facility] ([facility]) Body weight 3560 [oz_av] 3560 [oz_av] [facility] ([facility]) Diastolic blood pressure 70 mm[Hg] 70 mm[Hg] [facility] ([facility]) Body height 63 [in_i] 63 [in_i] [facility] ([facility]) Body mass index (BMI) [Ratio] 39.4 kg/m2 39.4 k g/m2 [facility] ([facility]) Systolic blood pressure 99 mm[Hg] 99 mm[Hg] A [facility] ([facility]) Body weight 3560 [oz_av] 3560 [oz_av] [facility] ([facility]) Body height 63 [in_i] 63 [in_i] [facility] ([facility]) Body height 63 [in_i] 63 [in_i] [facility] ([facility]) Body height 63 [in_i] 63 [in_i] [facility] ([facility]) Diastolic blood pressure 81 mm[Hg] 81 mm[Hg] [facility] ([facility]) Body height 63 [in_i] 63 [in_i] [facility] ([facility]) Body mass index (BMI) [Ratio] 40.4 kg/m2 40.4 k g/m2 [facility] ([facility]) Systolic blood pressure 112 mm[Hg] 112 mm[Hg] A [facility] ([facility]) Body weight 3652 [oz_av] 3652 [oz_av] [facility] ([facility]) Diastolic blood pressure 81 mm[Hg] 81 mm[Hg] [facility] ([facility]) Body height 63 [in_i] 63 [in_i] [facility] ([facility]) Body mass index (BMI) [Ratio] 40.4 kg/m2 40.4 k g/m2 [facility] ([facility]) Systolic blood pressure 112 mm[Hg] 112 mm[Hg] A [facility] ([facility]) Body weight 3652 [oz_av] 3652 [oz_av] [facility] ([facility]) Diastolic blood pressure 81 mm[Hg] 81 mm[Hg] [facility] ([facility]) Body height 63 [in_i] 63 [in_i] [facility] ([facility]) Body mass index (BMI) [Ratio] 40.4 kg/m2 40.4 k g/m2 [facility] ([facility]) Systolic blood pressure 112 mm[Hg] 112 mm[Hg] A [facility] ([facility]) Body weight 3652 [oz_av] 3652 [oz_av] [facility] ([facility]) Diastolic blood pressure 81 mm[Hg] 81 mm[Hg] [facility] ([facility]) Body height 63 [in_i] 63 [in_i] [facility] ([facility]) Body mass index (BMI) [Ratio] 40.4 kg/m2 40.4 k g/m2 [facility] ([facility]) Systolic blood pressure 112 mm[Hg] 112 mm[Hg] A [facility] ([facility]) Body weight 3652 [oz_av] 3652 [oz_av] [facility] ([facility]) Patient Treatment Plan of Care Planned Activity Planned Date Details Description Data Source (s) Ibuprofen 800 MG Oral Tablet [facility] ([facility]) Ergocalciferol 89611 UNT Oral Capsule [facility] ([facility]) Ibuprofen 800 MG Oral Tablet [facility] ([facility]) Ibuprofen 800 MG Oral Tablet [facility] ([facility]) Ibuprofen 800 MG Oral Tablet [facility] ([facility])
--- OUTSIDE RECORDS SUMMARY | 2021-09-13 13:23 | CCD ---
Author Author [facility] Organization [facility] Address Unknown Phone Unavailable Care Team Providers Care Director Data Management Name Role Phone YatesGermain rendon Unavailable PROBLEMS Type Condition ICD9-CM Code [id number] Code Onset Dates Condition S tatus W/U Status Risk SNOMED Code Notes Problem Infertility, female N97.9 Active confirmed 6461764 Problem Infertility, female, primary N97.9 Active confirme d 5890063 ALLERGIES Allergen (clinical drug ingredient) Drug/Non Drug Allergy do cumented on EMR Reaction Allergy Type Onset Date Status Latex Latex Unknown Drug Allergy Active azithromycin Azithromycin([facility] Code:[address]-21) Unknown Drug All ergy Active ENCOUNTERS from 1988 to 2021-08-24 Encounter Location Date Provider Diagnosis [facility] [address] [place] [address] [place] [address] Jul, Germain Yates Infertility, female, primary N97.9 ; Gynecologic exam normal Z01.419 and Encounter for Papanicolaou smear for cervical cancer screening Z12.4 IMMUNIZATIONS No Information SOCIAL HISTORY Tobacco Use: Social History Observation Description Date Details (start date - stop date) Never Smoker Sex Assigned At : Social History Observation Description Sex Assigned At Unknown Domestic Violence: Question Answer Notes Status: No history of abuse Tobacco Use: Question Answer Notes Are you a: never smoker REASON FOR REFERRAL No Information VITAL SIGNS Weight 233 lbs Jul, Height 63 in Jul, BMI 41.27 kg/m2 Jul, Blood pressure systolic 108 mm Hg Jul, Blood pressure diastolic 80 mm Hg Jul, MEDICATIONS Medication SIG (Take, Route, Frequency, Duration) Notes Start Da te End Date Status hydrOXYzine HCl 25 MG TAKE ONE TO TWO TABLETS BY M OUTH TWICE A DAY NEEDED FOR ITCHING OR INCREASED ANXIETY Oral for 15 Active Levocetirizine Dihydrochloride 5 MG 1 tablet in the ev ening Orally Once a day prn Active Famotidine 20 MG 1 tablet at bedtime as needed Orally Once a day Not-Taking Omeprazole 20 MG 1 capsule 30 minutes before morning meal Orally Once a day for 30 day(s) Jul, Active PROCEDURES No Information RESULTS No Results REASON FOR VISIT ANNUAL MEDICAL (GENERAL) HISTORY Type Description Date Medical History ADD Medical History Acid Reflux Medical History anxiety Medical History autoimmune disease Goals Section No Information Health Concerns No Information MEDICAL EQUIPMENT No Information MENTAL STATUS No Information FUNCTIONAL STATUS No Information ASSESSMENTS Encounter Date Diagnosis Assessment Notes Treatment Notes Treatm ent Clinical Notes Jul, Gynecologic exam normal (ICD-10 - Z01.419) Jul, Infertility, female, primary (ICD-10 - N97.9) Jul, Encounter for Papanicolaou s mear for cervical cancer screening (ICD-10 - Z12.4) Normal pelvic/physical exam today. Screenings updated. Continue with current BCM plan (nothing). Advised dailyPNV. Continue self breast exams. Return to office for any complaint of abnormal uterine bleeding or acute/chronic pelvic pain. PLAN OF TREATMENT Treatment Notes Assessment Notes Clinical Notes Encounter for Papanicolaou smear for cervical cancer screeni ng Normal pelvic/physical exam today. Screenings updated. Continue with current BCM plan (nothing). Advised dailyPNV. Continue self breast exams. Return to office for any complaint of abnormal uterine bleeding or acute/chronic pelvic pain. Treatment Notes Test Name Order Date PAP REQUEST FOR SERVICE 2021-08-22 Next Appt Details 1 Year Reason:- Annual follow up Follow Up:1 Year- Annual follow up Insurance Providers Payer Name Payer Address Payer Phone Insured Name Patient Relati onship to Insured Coverage Start Date Coverage End Date [facility] [address] [address] [facility] [phone] CHERYL ARROYO self
--- NOTE | 2021-09-13 14:34 | REP ---
INDICATION: trauma, twisting--lateral pain COMPARISON: None. TECHNIQUE: AP, lateral, bilateral oblique views. FINDINGS: No acute fracture or dislocation. Skeletal structures and joint spaces are intact and normal. Ankle mortise appears stable. No subcutaneous emphysema or radiodense foreign body. IMPRESSION: Normal right ankle radiograph series. <Electronically signed by Homer Chaves > 09/13/21 1714
[2021-09-13 14:53] VITALS: BP 145/82
--- OUTSIDE RECORDS SUMMARY | 2021-09-13 14:53 | CCD ---
Author Author [facility] Organization [facility] Address Unknown Phone Unavailable Care Team Providers Care Weighmaster Name Role Phone Sruthi Salinas MD Unavailable [...] Unavailable Sruthi Salinas MD Unavailable Unavailable Sruthi Salnias MD Unavailable Unavailable Sruthi Salinas MD Unavailable [...] Heri PA Unavailable Unavailable Wicho, A Marcelina SHUTTLE TRUCK DRIVER Unavailable Unavailable Wicho, A Marcelina SHUTTLE TRUCK DRIVER Unavailable Unavailable Wicho, A Marcelina SHUTTLE TRUCK DRIVER Unavailable Unavailable Wicho, A Marcelina SHUTTLE TRUCK DRIVER Unavailable Unavailable Wicho, A Marcelina SHUTTLE TRUCK DRIVER Unavailable Unavailable Wicho, A Marcelina SHUTTLE TRUCK DRIVER Unavailable Unavailable Wicho, A Marcelina SHUTTLE TRUCK DRIVER Unavailable Unavailable Wicho, A Marcelina SHUTTLE TRUCK DRIVER Unavailable Unavailable Wicho, A Marcelina SHUTTLE TRUCK DRIVER Unavailable Unavailable Wicho, A Marcelina SHUTTLE TRUCK DRIVER Unavailable Unavailable Wicho, A Marcelina SHUTTLE TRUCK DRIVER Unavailable Unavailable Wicho, A Marcelina SHUTTLE TRUCK DRIVER Unavailable Unavailable Wicho, A Marcelina SHUTTLE TRUCK DRIVER Unavailable Unavailable Wicho, A Marcelina SHUTTLE TRUCK DRIVER Unavailable Unavailable Wicho, A Marcelina SHUTTLE TRUCK DRIVER Unavailable Unavailable Wicho, A Marcelina SHUTTLE TRUCK DRIVER Unavailable Unavailable Wicho, A Marcelina SHUTTLE TRUCK DRIVER Unavailable Unavailable Wicho, A Marcelina SHUTTLE TRUCK DRIVER Unavailable Unavailable Wicho, A Marcelina SHUTTLE TRUCK DRIVER Unavailable Unavailable Wicho, A Marcelina SHUTTLE TRUCK DRIVER Unavailable Unavailable Wicho, A Marcelina SHUTTLE TRUCK DRIVER Unavailable Unavailable Wicho, A Marcelina SHUTTLE TRUCK DRIVER Unavailable Unavailable Wicho, A Marcelina SHUTTLE TRUCK DRIVER Unavailable Unavailable Wicho, A Marcelina SHUTTLE TRUCK DRIVER Unavailable Unavailable Wicho, A Marcelina SHUTTLE TRUCK DRIVER Unavailable Unavailable Wicho, A Marcelina SHUTTLE TRUCK DRIVER Unavailable Unavailable Wicho, A Marcelina SHUTTLE TRUCK DRIVER Unavailable Unavailable Wicho, A Marcelina SHUTTLE TRUCK DRIVER Unavailable Unavailable Wicho, A Marcelina SHUTTLE TRUCK DRIVER Unavailable Unavailable Wicho, A Marcelina SHUTTLE TRUCK DRIVER Unavailable Unavailable Wicho, A Marcelina SHUTTLE TRUCK DRIVER Unavailable Unavailable Re-disclosure Warning The records that [...] is protected by Article 27-F of the [facility] Public Health law. If you continue you may have access to information: Regarding HIV / AIDS; Provided by facilities licensed or operated by the [facility] Office of Mental Health; or Provided by the [facility] Office for People With Developmental Disabilities. If such information is present, then the following [facility] mandated warning applies: This information [...] law may result in a fine or halfway sentence or both. A general authorization for the release of medical or other information is NOT sufficient authorization for further disc losure. Family History Family Member Name Family Member Gender Family Member Status Date o f Status Description Data Source(s) Unknown Unknown Problem MEDENT ([facility]) Unknown Unknown Problem MEDENT ([facility]) Unknown Male Problem MEDENT ([facility] ) Encounters Encounter Providers Location Date Indications Data Source(s ) Outpatient [id number] [facility] [id number] 08/22/2021 12:00:00 AM EDT eCW1 ([facility]) EMILY Bryant: [address] [place] [address], Ph. Attender: Marcelina Sands [facility] Medical 07/26/2021 12:00:00 AM EDT [facility] ([facility]) EMILY Bryant: [address], [place] [address], Ph. Attender: Marcelina Sands [facility] Medical 04/25/2021 12:00:00 AM EDT [facility] ([facility]) EMILY Bryant: [address] [place] [address], Ph. Attender: Marcelina Sands [facility] Medical 04/25/2021 12:00:00 AM EDT [facility] ([facility]) Zachary Salinas MD: [address], [place] [address], Ph. Attender: Zachary Salinas MD [facility] 04/11/2021 12:00:00 AM EDT [facility] ([facility]) Zachary Salinas MD: [address] [place] [address], Ph. Attender: Zachary Salinas MD [facility] 04/11/2021 12:00:00 AM EDT [place] ([facility]) Zachary Salinas MD: [address] [place] [address], Ph. Attender: Zachary Salinas MD [facility] 04/11/2021 12:00:00 AM EDT [place] ([facility]) Marcelina Sands [facility]: [address], [place] [address], Ph. Attender: Marcelina Sands [facility] Medical 01/18/2021 12:00:00 AM EDT [place] ([facility]) Marcelina Sands [facility]: [address], [place] [address], Ph. Attender: Marcelina Sands [facility] Medical 01/18/2021 12:00:00 AM EDT [facility] ([facility]) Marcelina Sands [facility]: [address], [place] [address], Ph. Attender: Marcelina Sands [facility] Medical 01/18/2021 12:00:00 AM EDT [facility] ([facility]) Marcelina Sands [facility]: [address] [place] [address], Ph. Attender: Marcelina Sands [facility] Medical 01/18/2021 12:00:00 AM EDT [facility] ([facility]) Zachary Salinas MD: [address] [place] [address], Ph. Attender: Zachary Salinas MD [facility] 01/07/2021 12:00:00 AM EST [facility] ([facility]) Zachary Salinas MD: [address] [place] [address], Ph. Attender: Zachary Salinas MD [facility] 01/07/2021 12:00:00 AM EST [place] ([facility]) Zachary Salinas MD: [address] [place] [address], Ph. Attender: Zachary Salinas MD [facility] 01/07/2021 12:00:00 AM EST [facility] ([facility]) Zachary Salinas MD: [address] [place] [address], Ph. Attender: Zachary Salinas MD [facility] 01/07/2021 12:00:00 AM EST [facility] ([facility]) Zachary Salinas MD: [address] [place] [address], Ph. Attender: Zachary Salinas MD [facility] 01/07/2021 12:00:00 AM EST [facility] ([facility]) Outpatient Attender: Heri ARMENTA 12/26/19 05:41:46 PM EST - 12/26/2020 06:58:04 PM EST DocuTap ([facility] ) Immunizations Vaccine Date Status Description Data Source(s) COVID-19 VACCINE Moderna 08/05/2021 12:00:00 AM EDT completed [place] Vaccine Series Complete: YESThis Data wa s Submitted to [facility] Via [email or web address]. COVID-19, mRNA, LNP-S, PF, 100 mcg/0.5 mL dose 07/08/2021 12 :00:00 AM EDT completed 07/08/2021 [place] ([facility]) COVID-19 VACCINE Moderna 07/08/2021 12:00:00 AM EDT completed [place] Vaccine Series Complete: NOThis Data was Submitted to [facility] Via [email or web address]. Medications Medication Brand Name Start Date Product Form Dose Route Admi nistrative Instructions Pharmacy Instructions Status Indications Reaction Description Data Source(s) Omeprazole 20 MG Delayed Release Oral Capsule Omeprazole 20 MG 08/22/2021 12:00:00 AM EDT active Omeprazo le 20 MG eCW1 ([facility]) Ibuprofen 800 MG Oral Tablet ibuprofen 8 00 mg tablet TAKE ONE TABLET BY MOUTH THREE TIMES A DAY FOR 10 DAYS ibuprofen 800 mg tablet TAKE ONE TABLET BY MOUTH THREE TIMES A DAY FOR 10 DAYS complete d ibuprofen 800 MG Oral Tablet [facility] ([facility]) Ibuprofen 800 MG Oral Tablet ibuprofen 8 00 mg tablet TAKE ONE TABLET BY MOUTH THREE TIMES A DAY FOR 10 DAYS ibuprofen 800 mg tablet TAKE ONE TABLET BY MOUTH THREE TIMES A DAY FOR 10 DAYS complete d ibuprofen 800 MG Oral Tablet [facility] ([facility]) Ergocalciferol 79040 UNT Oral Capsule er gocalciferol (vitamin D2) 1,250 mcg (50,000 unit) capsule ergocalciferol (vitamin D2) 1,250 mcg (5 0,000 unit) capsule completed ergocalciferol 1.25 MG Oral Capsule [place] ([facility]) Ibuprofen 800 MG Oral Tablet ibuprofen 8 00 mg tablet TAKE ONE TABLET BY MOUTH THREE TIMES A DAY FOR 10 DAYS ibuprofen 800 mg tablet TAKE ONE TABLET BY MOUTH THREE TIMES A DAY FOR 10 DAYS complete d ibuprofen 800 MG Oral Tablet [facility] ([facility]) Ibuprofen 800 MG Oral Tablet ibuprofen 8 00 mg tablet TAKE ONE TABLET BY MOUTH THREE TIMES A DAY FOR 10 DAYS ibuprofen 800 mg tablet TAKE ONE TABLET BY MOUTH THREE TIMES A DAY FOR 10 DAYS complete d ibuprofen 800 MG Oral Tablet [place] ([facility]) Insurance Providers Payer name Policy type / Coverage type Policy ID Covered republican ID Covered republican's relationship to finch Policy Finch Plan Information [employer] (pr) Commercial [id number] Self [id number] [employer] (pr) Medigap Part B [id number] Self [id number] [employer] (pr) Commercial [id number] Self [id number] [employer] (pr) Commercial [id number] Self [id number] [employer] (pr) Medigap Part B [id number] Self [id number] [employer] (pr) Commercial [id number] Self [id number] [employer] P [id number] S [id number] UMR P [id number] S [id number] UMR P [id number] S [id number] Umr (pr) Commercial [id number] Self [id number] UMR P [id number] S [id number] UMR P [id number] S [id number] UMR P [id number] S [id number] UMR P [id number] S [id number] 2 [facility] [employer] [id number] Self [id number] ID IDENTIFICATION ID IDENTIFICATION [id number] Other Insurance ID IDENTIFICATION [facility] PLAN [facility] PLAN [id number] Commercial Insurance [facility] [id number] R [facility] [id number] SP [id number] R [employer] [id number] SP [id number] D [employer] S [id number] S [id number] UMR [employer] [id number] SP [id number] D UMR S [id number] S [id number] 2 UMR P [id number] S [id number] 2 UMR [facility] [id number] SP [id number] Umr Commercial [id number] Self [id number] UMR [id number] Commercial Insurance [id number] ID IDENTIFICATION [id number] Other Insurance [id number] [facility] [id number] Comme rcial Insurance [id number] [facility] [id number] Commercial Insurance [id number] [facility] [id number] Self [id number] [employer] [id number] SP [id number] [facility] Health Maintenance Organization (HMO) [id number] Self [id number] Problems, Conditions, and Diagnoses Code Display Name Description Problem Type Effective Dates Data Source(s) N97.9 Female infertility Infertility, female, primary Proble m 08/22/2021 12:00:00 AM EDT eCW1 ([facility]) Surgeries/Procedures No Information Results ID Date Data Source [id number] 04/11/2021 08:44:00 AM EDT [facility] ([facility]) Name Value Range Interpretation Code Description Data Hilary rce(s) Supporting Document(s) Leukocytes [#/volume] in Blood by Automated count 4.9 thousand/uL 3 .8-10.8 White Blood Cell Count [facility] ([facility]) Erythrocytes [#/volume] in Blood by Automated count 4.83 million/uL 3.80-5.10 Red Blood Cell Count [facility] ([facility]) Erythrocyte mean corpuscular volume [Entitic volume] by Auto mated count 87.0 fL 80.0-100.0 Mcv [facility] ([facility]) Hemoglobin [Mass/volume] in Blood 14.0 g/dL 11.7-15.5 He moglobin [facility] ([facility]) Hematocrit [Volume Fraction] of Blood by Automated count 42.0 % 35.0-45.0 Hematocrit [facility] ([facility]) Erythrocyte mean corpuscular hemoglobin [Entitic mass] by Automated count 29.0 pg 27.0-33.0 Mch [facility] ([facility]) Erythrocyte mean corpuscular hemoglobin concentration [Mass/volume] by Automated count 33.3 g/dL 32.0-36.0 Mchc [facility] ([facility]) Erythrocyte distribution width [Ratio] by Automated count 12.6 % 11.0-15.0 Rdw [facility] ([facility]) Platelet mean volume [Entitic volume] in Blood by Mariana 9.9 fL 7.5-12.5 Mpv [facility] ([facility]) Neutrophils [#/volume] in Blood by Automated count 3033 cells/uL 15 00-7800 Absolute Neutrophils [facility] ([facility]) Platelets [#/volume] in Blood by Automated count 250 thousand/uL 14 0-400 Platelet Count [facility] ([facility]) Lymphocytes [#/volume] in Blood by Automated count 1397 cells/uL 85 0-3900 Absolute Lymphocytes [facility] ([facility]) Monocytes [#/volume] in Blood by Automated count 470 cells/uL 200-9 50 Absolute Monocytes [facility] ([facility]) Eosinophils [#/volume] in Blood by Automated count 0 cells/uL 15-500 Below low normal Absolute Eosinophils [facility] ([facility] ter) Neutrophils/100 leukocytes in Blood by Automated count 61.9 % 38-80 Neutrophils [facility] ([facility]) Lymphocytes/100 leukocytes in Blood by Automated count 28.5 % 15-49 Lymphocytes [facility] ([facility]) Basophils [#/volume] in Blood by Automated count 0 cells/uL 0-200 Absolute Basophils [facility] ([facility]) Monocytes/100 leukocytes in Blood by Automated count 9.6 % 0-13 Monocytes [facility] ([facility]) Basophils/100 leukocytes in Blood by Automated count 0.0 % 0-2 Basophils [facility] ([facility]) Eosinophils/100 leukocytes in Blood by Automated count 0.0 % 0-8 Eosinophils [facility] ([facility]) ID Date Data Source [id number] 04/11/2021 08:44:00 AM EDT [place] ([facility]) Name Value Range Interpretation Code Description Data Hilary rce(s) Supporting Document(s) Glucose [Mass/volume] in Serum or Plasma 92 mg/dL 65-99 [facility] Glomerular filtration rate/1.73 sq M.pre dicted among non-blacks [Volume Rate/Area] in Serum, Plasma or Blood by Creatinine-based formula (CKD-EPI) 120 mL/min/1.73m2 > or = 60 eGFR Non-afr. [place] [facility] ([facility]) Creatinine [Mass/volume] in Serum or Plasma 0.61 mg/dL 0.50-1.10 Creatinine [place] ([facility]) Urea nitrogen [Mass/volume] in Serum or Plasma 18 mg/dL 7-25 Urea Nitrogen (BUN) [facility] Sodium [Moles/volume] in Serum or Plasma 140 mmol/L 135-146 Sodium [facility] ([facility]) Urea nitrogen/Creatinine [Mass Ratio] in Serum or Plasma not applic able 6-22 BUN/creatinine Ratio [facility] ([facility]) Glomerular filtration rate/1.73 sq M.pre dicted among blacks [Volume Rate/Area] in Serum, Plasma or Blood by Creatinine-based formula (CKD-EPI) 139 mL/min/1.73m2 > or = 60 eGFR [facility]VIS ([facility]) Chloride [Moles/volume] in Serum or Plasma 104 mmol/L 98-110 Chloride [facility] ([facility]) Potassium [Moles/volume] in Serum or Plasma 4.7 mmol/L 3.5-5.3 Potassium [facility] ([facility]) Carbon dioxide, total [Moles/volume] in Serum or Plasma 27 mmol/L 20-32 Carbon Dioxide [facility] ([facility]) Calcium [Mass/volume] in Serum or Plasma 9.2 mg/dL 8.6-10.2 Calcium [facility] ([facility]) Protein [Mass/volume] in Serum or Plasma 6.9 g/dL 6.1-8.1 Protein, Total [facility] ([facility]) Globulin [Mass/volume] in Serum by calculation 2.5 g/dL_(calc) 1.9- 3.7 Globulin [place] ([facility]) Albumin [Mass/volume] in Serum or Plasma 4.4 g/dL 3.6-5.1 Albumin [place] ([facility]) Albumin/Globulin [Mass Ratio] in Serum or Plasma 1.8 (calc) 1.0-2 .5 Albumin/globulin Ratio [place] ([facility]) Bilirubin.total [Mass/volume] in Serum or Plasma 0.6 mg/dL 0.2-1 .2 Bilirubin, Total [facility] ([facility]) Alkaline phosphatase [Enzymatic activity/volume] in Serum or Plasma 81 U/L 31-125 Alkaline Phosphatase [facility] ([facility]) Alanine aminotransferase [Enzymatic activity/volume] in Seru m or Plasma 14 U/L 6-29 Alt [facility] ([facility]) Aspartate aminotransferase [Enzymatic activity/volume] in Serum or Plasma 15 U/L 10-30 Ast [facility] ([facility]) ID Date Data Source [id number] 04/11/2021 08:44:00 AM EDT [place] ([facility]) Name Value Range Interpretation Code Description Data Hilary rce(s) Supporting Document(s) Cholesterol [Mass/volume] in Serum or Plasma 197 mg/dL <200 Cholesterol, Total [facility] ([facility]) Cholesterol in HDL [Mass/volume] in Serum or Plasma 53 mg/dL > or = 50 HDL Cholesterol [facility] ([facility]) Triglyceride [Mass/volume] in Serum or Plasma 70 mg/dL <150 Triglycerides [facility] ([facility]) Cholesterol non HDL [Mass/volume] in Serum or Plasma 144 mg/dL_( calc) <130 Above high normal Non HDL Cholesterol [facility] ([facility]) Cholesterol.total/Cholesterol in HDL [Mass Ratio] in Serum o r Plasma 3.7 calc <5.0 Chol/hdlc Ratio [facility] ([facility]) Cholesterol in LDL [Mass/volume] in Serum or Plasma by calculation 128 mg/dL_(calc) <100 Above high normal LDL-cholesterol [facility] ([facility]) ID Date Data Source [id number] 04/11/2021 08:44:00 AM EDT [place] ([facility]) Name Value Range Interpretation Code Description Data Hilary rce(s) Supporting Document(s) Erythrocytes [#/volume] in Blood by Automated count 4.83 million/uL 3.80-5.10 Red Blood Cell Count [facility] ([facility]) Hemoglobin [Mass/volume] in Blood 14.0 g/dL 11.7-15.5 He moglobin [facility] ([facility]) Leukocytes [#/volume] in Blood by Automated count 4.9 thousand/uL 3 .8-10.8 White Blood Cell Count [place] ([facility]) Erythrocyte mean corpuscular hemoglobin [Entitic mass] by Automated count 29.0 pg 27.0-33.0 Mch [facility] ([facility]) Hematocrit [Volume Fraction] of Blood by Automated count 42.0 % 35.0-45.0 Hematocrit [facility] ([facility]) Erythrocyte mean corpuscular volume [Entitic volume] by Auto mated count 87.0 fL 80.0-100.0 Mcv [facility] ([facility]) Platelet mean volume [Entitic volume] in Blood by Warner-Mar[place] 9.9 fL 7.5-12.5 Mpv [facility] ([facility]) Erythrocyte distribution width [Ratio] by Automated count 12.6 % 11.0-15.0 Rdw [facility] ([facility]) Erythrocyte mean corpuscular hemoglobin concentration [Mass/volume] by Automated count 33.3 g/dL 32.0-36.0 Mchc [facility] ([facility]) Platelets [#/volume] in Blood by Automated count 250 thousand/uL 14 0-400 Platelet Count [facility] ([facility]) Lymphocytes [#/volume] in Blood by Automated count 1397 cells/uL 85 0-3900 Absolute Lymphocytes [facility] ([facility]) Monocytes [#/volume] in Blood by Automated count 470 cells/uL 200-9 50 Absolute Monocytes [facility] ([facility]) Neutrophils [#/volume] in Blood by Automated count 3033 cells/uL 15 00-7800 Absolute Neutrophils [facility] ([facility]) Eosinophils [#/volume] in Blood by Automated count 0 cells/uL 15-500 Below low normal Absolute Eosinophils [facility] ([facility]) Basophils [#/volume] in Blood by Automated count 0 cells/uL 0-200 Absolute Basophils [facility] ([facility]) Neutrophils/100 leukocytes in Blood by Automated count 61.9 % 38-80 Neutrophils [facility] ([facility]) Eosinophils/100 leukocytes in Blood by Automated count 0.0 % 0-8 Eosinophils [facility] ([facility]) Monocytes/100 leukocytes in Blood by Automated count 9.6 % 0-13 Monocytes [facility] ([facility]) Lymphocytes/100 leukocytes in Blood by Automated count 28.5 % 15-49 Lymphocytes [facility] ([facility]) Basophils/100 leukocytes in Blood by Automated count 0.0 % 0-2 Basophils [facility] ([facility]) ID Date Data Source [id number] 04/11/2021 08:44:00 AM EDT [facility] ([facility]) Name Value Range Interpretation Code Description Data Hilary rce(s) Supporting Document(s) Urea nitrogen [Mass/volume] in Serum or Plasma 18 mg/dL 7-25 Urea Nitrogen (BUN) [facility] ([facility]) Glucose [Mass/volume] in Serum or Plasma 92 mg/dL 65-99 Glucose [facility] ([facility]) Creatinine [Mass/volume] in Serum or Plasma 0.61 mg/dL 0.50-1.10 Creatinine [facility] ([facility]) Glomerular filtration rate/1.73 sq M.pre dicted among blacks [Volume Rate/Area] in Serum, Plasma or Blood by Creatinine-based formula (CKD-EPI) 139 mL/min/1.73m2 > or = 60 eGFR [facility] (No [facility]) Glomerular filtration rate/1.73 sq M.pre dicted among non-blacks [Volume Rate/Area] in Serum, Plasma or Blood by Creatinine-based formula (CKD-EPI) 120 mL/min/1.73m2 > or = 60 eGFR Non-afr. [place] [facility] ([facility]) Urea nitrogen/Creatinine [Mass Ratio] in Serum or Plasma not applic able 6-22 BUN/creatinine Ratio [place] ([facility]) Sodium [Moles/volume] in Serum or Plasma 140 mmol/L 135-146 Sodium [place] ([facility]) Calcium [Mass/volume] in Serum or Plasma 9.2 mg/dL 8.6-10.2 Calcium [place] ([facility]) Potassium [Moles/volume] in Serum or Plasma 4.7 mmol/L 3.5-5.3 Potassium [facility] ([facility]) Carbon dioxide, total [Moles/volume] in Serum or Plasma 27 mmol/L 20-32 Carbon Dioxide [place] ([facility]) Chloride [Moles/volume] in Serum or Plasma 104 mmol/L 98-110 Chloride [place] ([facility]) Albumin [Mass/volume] in Serum or Plasma 4.4 g/dL 3.6-5.1 Albumin [place] ([facility]) Protein [Mass/volume] in Serum or Plasma 6.9 g/dL 6.1-8.1 Protein, [facility] Globulin [Mass/volume] in Serum by calculation 2.5 g/dL_(calc) 1.9- 3.7 Globulin [place] ([facility]) Albumin/Globulin [Mass Ratio] in Serum or Plasma 1.8 (calc) 1.0-2 .5 Albumin/globulin Ratio [facility]) Bilirubin.total [Mass/volume] in Serum or Plasma 0.6 mg/dL 0.2-1 .2 Bilirubin, Total [facility] ([facility]) Alkaline phosphatase [Enzymatic activity/volume] in Serum or Plasma 81 U/L 31-125 Alkaline Phosphatase [facility] ([facility]) Alanine aminotransferase [Enzymatic activity/volume] in Seru m or Plasma 14 U/L 6-29 Alt [facility] ([facility]) Aspartate aminotransferase [Enzymatic activity/volume] in Serum or Plasma 15 U/L 10-30 Ast [facility] ([facility]) ID Date Data Source [id number] 04/11/2021 08:44:00 AM EDT [facility] ([facility]) Name Value Range Interpretation Code Description Data Hilary rce(s) Supporting Document(s) Cholesterol [Mass/volume] in Serum or Plasma 197 mg/dL <200 Cholesterol, Total [facility] ([facility]) Cholesterol in HDL [Mass/volume] in Serum or Plasma 53 mg/dL > or = 50 HDL Cholesterol [facility] ([facility]) Cholesterol in LDL [Mass/volume] in Serum or Plasma by calculation 128 mg/dL_(calc) <100 Above high normal LDL-cholesterol [facility] ([facility]) Triglyceride [Mass/volume] in Serum or Plasma 70 mg/dL <150 Triglycerides [facility] ([facility]) Cholesterol.total/Cholesterol in HDL [Mass Ratio] in Serum o r Plasma 3.7 calc <5.0 Chol/hdlc Ratio [facility] ([facility]) Cholesterol non HDL [Mass/volume] in Serum or Plasma 144 mg/dL_( calc) <130 Above high normal Non HDL Cholesterol [facility] ([facility]) ID Date Data Source [id number] 01/07/2021 08:10:00 AM EST [facility] ([facility]) Name Value Range Interpretation Code Description Data Hilary rce(s) Supporting Document(s) total 25(oh) vitamin D 21.4 NG/mL 30.0-100.0 Below low normal T otal 25(Oh) Vitamin D [facility] ID Date Data Source [id number] 01/07/2021 08:10:00 AM EST [facility] ([facility]) Name Value Range Interpretation Code Description Data Hilary rce(s) Supporting Document(s) thyroid stimulating hormone 2.280 uIU/mL 0.358-3.740 Thyroid Stimulating Hormone ELVIS ([facility]) free T4 0.85 NG/dL 0.76-1.46 Free T4 [facility] ([facility]) ID Date Data Source [id number] 01/07/2021 08:10:00 AM EST ELVIS ([facility]) Name Value Range Interpretation Code Description Data Hilary rce(s) Supporting Document(s) cholesterol level 204 mg/dL <200 Above high normal Cholesterol Level ELVIS ([facility]) HDL cholesterol 59 mg/dL >40 HDL Cholesterol ATHE ([facility]) triglycerides level 52 mg/dL <150 Triglycerides Le susy ELVIS ([facility]) non-HDL-C 145 mg/dL Non-hdl-c EL[facility] ([facility]) cholesterol risk ratio <5 Cholesterol R isk Ratio ELVIS ([facility]) Cholesterol in LDL [Mass/volume] in Serum or Plasma 135 mg/dL <100 Above high normal LDL Cholesterol EL[facility] ([facility]) ID Date Data Source [id number] 01/07/2021 08:10:00 AM EST [place] ([facility]) Name Value Range Interpretation Code Description Data Hilary rce(s) Supporting Document(s) blood urea nitrogen 21 mg/dL 7-18 Above high normal Blood Ure a Nitrogen ELVIS ([facility]) glucose, fasting 98 mg/dL 70-100 Glucose, Fasting AT [facility] ([facility]) potassium serum 4.2 mEq/L 3.5-5.1 Potassium Serum ATHE ([facility]) creatinine for GFR 0.68 mg/dL 0.55-1.30 Creatinine for GF R ELVIS ([facility]) sodium level 140 mEq/L 136-145 Sodium Level EL[facility] ([facility]) glomerular filtration rate > 60.0 >60 Glomerula r Filtration Rate ELVIS ([facility]) AST/SGOT 10 U/L 7-37 AST/SGOT [facility] ([facility]) carbon dioxide level 29 mEq/L 21-32 Carbon Dioxide Level EL[facility] ([facility]) anion gap 3 mEq/L 8-16 Below low normal Anion Gap ELVIS ( [facility]) calcium level 9.2 mg/dL 8.5-10.1 Calcium Level ELVIS ( [facility]) chloride level 108 mEq/L 98-107 Above high normal Chloride Level ELVIS ([facility]) total protein 7.3 gm/dL 6.4-8.2 Total Protein ELVIS ( [facility]) ALT/SGPT 20 U/L 12-78 ALT/SGPT EL[facility] ([facility]) alkaline phosphatase 80 U/L 45-117 Alkaline Phosph atase ELVIS ([facility]) albumin 4.2 gm/dL 3.2-5.2 Albumin LEVIS ([facility]) bilirubin,total 0.4 mg/dL 0.2-1.0 Bilirubin,total ATHE ([facility]) albumin/globulin ratio 1.2-2.2 Albumin/globu rupa Ratio [facility] ([facility]) ID Date Data Source [id number] 01/07/2021 08:10:00 AM EST EL[facility] ([facility]) Name Value Range Interpretation Code Description Data Hilary rce(s) Supporting Document(s) red blood count 5.01 10 4.00-5.40 Red Blood Count ATHE ([facility]) white blood count 4.9 10 4.0-10.0 White Blood Count EL[facility] ([facility]) mean corpuscular hemoglobin 28.7 pg 27.0-33.0 Mean Cor puscular Hemoglobin EL[facility] ([facility]) hematocrit 43.2 % 36.0-47.0 Hematocrit EL[facility] ([facility]) mean corpuscular volume 86.2 fL 80.0-96.0 Mean Corpusc ular Volume ELVIS ([facility]) hemoglobin 14.4 g/dL 12.0-15.5 Hemoglobin EL[facility] ([facility]) mean corpuscular HGB conc 33.3 g/dL 32.0-36.5 Mean Corpu scular HGB Conc ELVIS ([facility]) red cell distribution width 12.7 % 11.5-14.5 Red Cell Distribution Width EL[facility] ([facility]) platelet count, automated 236 10 150-450 Platelet C ount, Automated ELVIS ([facility]) mono % 10.5 % 2.0-8.0 Above high normal Rock % [place] ([facility]) lymph % 27.4 % 24.0-44.0 Lymph % [facility] ([facility]) eos % 0.0 % 0.0-3.0 Eos % [place] ([facility]) neutrophils % 61.7 % 36.0-66.0 Neutrophils % [place] ( [facility]) baso % 0.2 % 0.0-1.0 Baso % [place] ([facility]) immature granulocyte % 0.2 % 0-3.0 Immature Gran ulocyte % ELVIS ([facility]) nucleated red blood cell % 0.0 % 0-0 Nucleated Red Blood Cell % [place] ([facility]) neutrophils # 3.0 10 1.5-8.5 Neutrophils # [place] ( [facility]) mono # 0.5 10 0.0-0.8 Rock # [place] ([facility]) baso # 0.0 10 0.0-0.2 Baso # ELVIS ([facility]) eos # 0.0 10 0.0-0.5 Eos # EL[facility] ([facility]) lymph # 1.3 10 1.5-5.0 Below low normal Lymph # [place] ( [facility]) ID Date Data Source [id number] 01/07/2021 08:10:00 AM EST [place] ([facility]) Name Value Range Interpretation Code Description Data Hilary rce(s) Supporting Document(s) total 25(oh) vitamin D 21.4 NG/mL 30.0-100.0 Below low normal T otal 25(Oh) Vitamin D [facility] ([facility]) ID Date Data Source [id number] 01/07/2021 08:10:00 AM EST EL[facility] ([facility]) Name Value Range Interpretation Code Description Data Hilary rce(s) Supporting Document(s) thyroid stimulating hormone 2.280 uIU/mL 0.358-3.740 Thyroid Stimulating Hormone ELVIS ([facility]) free T4 0.85 NG/dL 0.76-1.46 Free T4 [facility] ([facility]) ID Date Data Source [id number] 01/07/2021 08:10:00 AM EST [place] ([facility]) Name Value Range Interpretation Code Description Data Hilary rce(s) Supporting Document(s) HDL cholesterol 59 mg/dL >40 HDL Cholesterol ATHE NA ([facility]) triglycerides level 52 mg/dL <150 Triglycerides Le susy ELVIS ([facility]) cholesterol level 204 mg/dL <200 Above high normal Cholesterol Level ELVIS ([facility]) Cholesterol in LDL [Mass/volume] in Serum or Plasma 135 mg/dL <100 Above high normal LDL Cholesterol [facility] ([facility]) cholesterol risk ratio <5 Cholesterol R isk Ratio ELVIS ([facility]) non-HDL-C 145 mg/dL Non-hdl-c EL[facility] ([facility]) ID Date Data Source [id number] 01/07/2021 08:10:00 AM EST ELVIS ([facility]) Name Value Range Interpretation Code Description Data Hilary rce(s) Supporting Document(s) creatinine for GFR 0.68 mg/dL 0.55-1.30 Creatinine for GF R ELVIS ([facility]) glucose, fasting 98 mg/dL 70-100 Glucose, Fasting AT [facility] ([facility]) blood urea nitrogen 21 mg/dL 7-18 Above high normal Blood Ure a Nitrogen ELVIS ([facility]) potassium serum 4.2 mEq/L 3.5-5.1 Potassium Serum ATHE NA ([facility]) chloride level 108 mEq/L 98-107 Above high normal Chloride Level ELVIS ([facility]) sodium level 140 mEq/L 136-145 Sodium Level EL[facility] ([facility]) glomerular filtration rate > 60.0 >60 Glomerula r Filtration Rate ELVIS ([facility]) carbon dioxide level 29 mEq/L 21-32 Carbon Dioxide Level ELVIS ([facility]) anion gap 3 mEq/L 8-16 Below low normal Anion Gap ELVIS ( [facility]) AST/SGOT 10 U/L 7-37 AST/SGOT [facility] ([facility]) calcium level 9.2 mg/dL 8.5-10.1 Calcium Level ELVIS ( [facility]) total protein 7.3 gm/dL 6.4-8.2 Total Protein ELVIS ( [facility]) ALT/SGPT 20 U/L 12-78 ALT/SGPT [facility] ([facility]) bilirubin,total 0.4 mg/dL 0.2-1.0 Bilirubin,total ATHE NA ([facility]) alkaline phosphatase 80 U/L 45-117 Alkaline Phosph atase EL[facility] ([facility]) albumin 4.2 gm/dL 3.2-5.2 Albumin EL[facility] ([facility]) albumin/globulin ratio 1.2-2.2 Albumin/globu rupa Ratio ELVIS ([facility]) ID Date Data Source [id number] 01/07/2021 08:10:00 AM EST ELVIS ([facility]) Name Value Range Interpretation Code Description Data Hilary rce(s) Supporting Document(s) white blood count 4.9 10 4.0-10.0 White Blood Count ELVIS ([facility]) red blood count 5.01 10 4.00-5.40 Red Blood Count ATHE NA ([facility]) hemoglobin 14.4 g/dL 12.0-15.5 Hemoglobin ELVIS ([facility]) mean corpuscular hemoglobin 28.7 pg 27.0-33.0 Mean Cor puscular Hemoglobin ELVIS ([facility]) hematocrit 43.2 % 36.0-47.0 Hematocrit ELVIS ([facility]) mean corpuscular volume 86.2 fL 80.0-96.0 Mean Corpusc ular Volume ELVIS ([facility]) mean corpuscular HGB conc 33.3 g/dL 32.0-36.5 Mean Corpu scular HGB Conc ELVIS ([facility]) platelet count, automated 236 10 150-450 Platelet C ount, Automated ELVIS ([facility]) lymph % 27.4 % 24.0-44.0 Lymph % EL[facility] ([facility]) red cell distribution width 12.7 % 11.5-14.5 Red Cell Distribution Width ELVIS ([facility]) neutrophils % 61.7 % 36.0-66.0 Neutrophils % [place] ( [facility]) mono % 10.5 % 2.0-8.0 Above high normal Rock % ELVIS ([facility]) eos % 0.0 % 0.0-3.0 Eos % [place] ([facility]) immature granulocyte % 0.2 % 0-3.0 Immature Gran ulocyte % ELVIS ([facility]) baso % 0.2 % 0.0-1.0 Baso % [place] ([facility]) nucleated red blood cell % 0.0 % 0-0 Nucleated Red Blood Cell % ELVIS ([facility]) mono # 0.5 10 0.0-0.8 Rock # ELVIS ([facility]) neutrophils # 3.0 10 1.5-8.5 Neutrophils # ELVIS ( [facility]) lymph # 1.3 10 1.5-5.0 Below low normal Lymph # ELVIS ( [facility]) baso # 0.0 10 0.0-0.2 Baso # EL[facility] ([facility]) eos # 0.0 10 0.0-0.5 Eos # EL[facility] ([facility]) ID Date Data Source [id number] 01/07/2021 08:10:00 AM EST EL[facility] ([facility]) Name Value Range Interpretation Code Description Data Hilary rce(s) Supporting Document(s) total 25(oh) vitamin D 21.4 NG/mL 30.0-100.0 Below low normal T otal 25(Oh) Vitamin D [facility] ([facility]) ID Date Data Source [id number] 01/07/2021 08:10:00 AM EST EL[facility] ([facility]) Name Value Range Interpretation Code Description Data Hilary rce(s) Supporting Document(s) thyroid stimulating hormone 2.280 uIU/mL 0.358-3.740 Thyroid Stimulating Hormone ELVIS ([facility]) free T4 0.85 NG/dL 0.76-1.46 Free T4 [facility] ([facility]) ID Date Data Source [id number] 01/07/2021 08:10:00 AM EST ELVIS ([facility]) Name Value Range Interpretation Code Description Data Hilary rce(s) Supporting Document(s) cholesterol level 204 mg/dL <200 Above high normal Cholesterol Level ELVIS ([facility]) triglycerides level 52 mg/dL <150 Triglycerides Le susy ELVIS ([facility]) cholesterol risk ratio <5 Cholesterol R isk Ratio ELVIS ([facility]) Cholesterol in LDL [Mass/volume] in Serum or Plasma 135 mg/dL <100 Above high normal LDL Cholesterol [facility] ([facility]) non-HDL-C 145 mg/dL Non-hdl-c ELVIS ([facility]) HDL cholesterol 59 mg/dL >40 HDL Cholesterol ATHE ([facility]) ID Date Data Source [id number] 01/07/2021 08:10:00 AM EST ELVIS ([facility]) Name Value Range Interpretation Code Description Data Hilary rce(s) Supporting Document(s) glucose, fasting 98 mg/dL 70-100 Glucose, Fasting AT [facility] ([facility]) creatinine for GFR 0.68 mg/dL 0.55-1.30 Creatinine for GF R ELVIS ([facility]) blood urea nitrogen 21 mg/dL 7-18 Above high normal Blood Ure a Nitrogen ELVIS ([facility]) sodium level 140 mEq/L 136-145 Sodium Level EL[facility] ([facility]) chloride level 108 mEq/L 98-107 Above high normal Chloride Level ELVIS ([facility]) glomerular filtration rate > 60.0 >60 Glomerula r Filtration Rate ELVIS ([facility]) potassium serum 4.2 mEq/L 3.5-5.1 Potassium Serum ATHE NA ([facility]) calcium level 9.2 mg/dL 8.5-10.1 Calcium Level ELVIS ( [facility]) carbon dioxide level 29 mEq/L 21-32 Carbon Dioxide Level ELVIS ([facility]) AST/SGOT 10 U/L 7-37 AST/SGOT [facility] ([facility]) anion gap 3 mEq/L 8-16 Below low normal Anion Gap ELVIS ( [facility]) ALT/SGPT 20 U/L 12-78 ALT/SGPT EL[facility] ([facility]) total protein 7.3 gm/dL 6.4-8.2 Total Protein ELVIS ( [facility]) alkaline phosphatase 80 U/L 45-117 Alkaline Phosph atase ELVIS ([facility]) bilirubin,total 0.4 mg/dL 0.2-1.0 Bilirubin,total ATHE ([facility]) albumin/globulin ratio 1.2-2.2 Albumin/globu rupa Ratio ELVIS ([facility]) albumin 4.2 gm/dL 3.2-5.2 Albumin EL[facility] ([facility]) ID Date Data Source [id number] 01/07/2021 08:10:00 AM EST ELVIS ([facility]) Name Value Range Interpretation Code Description Data Hilary rce(s) Supporting Document(s) white blood count 4.9 10 4.0-10.0 White Blood Count ELVIS ([facility]) red blood count 5.01 10 4.00-5.40 Red Blood Count ATHE NA ([facility]) hemoglobin 14.4 g/dL 12.0-15.5 Hemoglobin ELVIS ([facility]) hematocrit 43.2 % 36.0-47.0 Hematocrit ELVIS ([facility]) mean corpuscular hemoglobin 28.7 pg 27.0-33.0 Mean Cor puscular Hemoglobin ELVIS ([facility]) mean corpuscular volume 86.2 fL 80.0-96.0 Mean Corpusc ular Volume ELVIS ([facility]) mean corpuscular HGB conc 33.3 g/dL 32.0-36.5 Mean Corpu scular HGB Conc ELVIS ([facility]) red cell distribution width 12.7 % 11.5-14.5 Red Cell Distribution Width ELVIS ([facility]) neutrophils % 61.7 % 36.0-66.0 Neutrophils % ELVIS ( [facility]) platelet count, automated 236 10 150-450 Platelet C ount, Automated ELVIS ([facility]) eos % 0.0 % 0.0-3.0 Eos % EL[facility] ([facility]) mono % 10.5 % 2.0-8.0 Above high normal Rock % ELVIS ([facility]) baso % 0.2 % 0.0-1.0 Baso % EL[facility] ([facility]) lymph % 27.4 % 24.0-44.0 Lymph % EL[facility] ([facility]) neutrophils # 3.0 10 1.5-8.5 Neutrophils # ELVIS ( [facility]) immature granulocyte % 0.2 % 0-3.0 Immature Gran ulocyte % ELVIS ([facility]) nucleated red blood cell % 0.0 % 0-0 Nucleated Red Blood Cell % ELVIS ([facility]) eos # 0.0 10 0.0-0.5 Eos # EL[facility] ([facility]) baso # 0.0 10 0.0-0.2 Baso # EL[facility] ([facility]) lymph # 1.3 10 1.5-5.0 Below low normal Lymph # ELVIS ( [facility]) mono # 0.5 10 0.0-0.8 Rock # ELVIS ([facility]) ID Date Data Source [id number] 01/07/2021 08:10:00 AM EST ELVIS ([facility]) Name Value Range Interpretation Code Description Data Hilary rce(s) Supporting Document(s) total 25(oh) vitamin D 21.4 NG/mL 30.0-100.0 Below low normal T otal 25(Oh) Vitamin D [facility] ([facility]) ID Date Data Source [id number] 01/07/2021 08:10:00 AM EST ELVIS ([facility]) Name Value Range Interpretation Code Description Data Hilary rce(s) Supporting Document(s) thyroid stimulating hormone 2.280 uIU/mL 0.358-3.740 Thyroid Stimulating Hormone ELVIS ([facility]) free T4 0.85 NG/dL 0.76-1.46 Free T4 [facility] ([facility]) ID Date Data Source [id number] 01/07/2021 08:10:00 AM EST EL[facility] ([facility]) Name Value Range Interpretation Code Description Data Hilary rce(s) Supporting Document(s) triglycerides level 52 mg/dL <150 Triglycerides Le susy ELVIS ([facility]) Cholesterol in LDL [Mass/volume] in Serum or Plasma 135 mg/dL <100 Above high normal LDL Cholesterol [facility] ([facility]) cholesterol risk ratio <5 Cholesterol R isk Ratio ELVIS ([facility]) HDL cholesterol 59 mg/dL >40 HDL Cholesterol ATHE NA ([facility]) non-HDL-C 145 mg/dL Non-hdl-c [facility] ([facility]) cholesterol level 204 mg/dL <200 Above high normal Cholesterol Level ELVIS ([facility]) ID Date Data Source [id number] 01/07/2021 08:10:00 AM EST ELVIS ([facility]) Name Value Range Interpretation Code Description Data Hilary rce(s) Supporting Document(s) glucose, fasting 98 mg/dL 70-100 Glucose, Fasting AT [facility] ([facility]) blood urea nitrogen 21 mg/dL 7-18 Above high normal Blood Ure a Nitrogen EL[facility] ([facility]) creatinine for GFR 0.68 mg/dL 0.55-1.30 Creatinine for GF R ELVIS ([facility]) glomerular filtration rate > 60.0 >60 Glomerula r Filtration Rate ELVIS ([facility]) potassium serum 4.2 mEq/L 3.5-5.1 Potassium Serum ATHE NA ([facility]) sodium level 140 mEq/L 136-145 Sodium Level [facility] ([facility]) anion gap 3 mEq/L 8-16 Below low normal Anion Gap ELVIS ( [facility]) chloride level 108 mEq/L 98-107 Above high normal Chloride Level ELVIS ([facility]) carbon dioxide level 29 mEq/L 21-32 Carbon Dioxide Level ELVIS ([facility]) calcium level 9.2 mg/dL 8.5-10.1 Calcium Level ELVIS ( [facility]) AST/SGOT 10 U/L 7-37 AST/SGOT [facility] ([facility]) total protein 7.3 gm/dL 6.4-8.2 Total Protein ELVIS ( [facility]) bilirubin,total 0.4 mg/dL 0.2-1.0 Bilirubin,total ATHE ([facility]) alkaline phosphatase 80 U/L 45-117 Alkaline Phosph atase EL[facility] ([facility]) ALT/SGPT 20 U/L 12-78 ALT/SGPT [facility] ([facility]) albumin/globulin ratio 1.2-2.2 Albumin/globu rupa Ratio ELVIS ([facility]) albumin 4.2 gm/dL 3.2-5.2 Albumin [facility] ([facility]) ID Date Data Source [id number] 01/07/2021 08:10:00 AM [facility] Name Value Range Interpretation Code Description Data Hilary rce(s) Supporting Document(s) hemoglobin 14.4 g/dL 12.0-15.5 Hemoglobin ELVIS ([facility]) red blood count 5.01 10 4.00-5.40 Red Blood Count ATHE NA ([facility]) white blood count 4.9 10 4.0-10.0 White Blood Count ELVIS ([facility]) mean corpuscular hemoglobin 28.7 pg 27.0-33.0 Mean Cor puscular Hemoglobin ELVIS ([facility]) mean corpuscular volume 86.2 fL 80.0-96.0 Mean Corpusc ular Volume ELVIS ([facility]) hematocrit 43.2 % 36.0-47.0 Hematocrit EL[facility] ([facility]) mean corpuscular HGB conc 33.3 g/dL 32.0-36.5 Mean Corpu scular HGB Conc ELVIS ([facility]) platelet count, automated 236 10 150-450 Platelet C ount, Automated ELVIS ([facility]) red cell distribution width 12.7 % 11.5-14.5 Red Cell Distribution Width ELVIS ([facility]) neutrophils % 61.7 % 36.0-66.0 Neutrophils % ELVIS ( [facility]) lymph % 27.4 % 24.0-44.0 Lymph % [facility] ([facility]) baso % 0.2 % 0.0-1.0 Baso % [facility] ([facility]) eos % 0.0 % 0.0-3.0 Eos % EL[facility] ([facility]) mono % 10.5 % 2.0-8.0 Above high normal Rock % ELVIS ([facility]) neutrophils # 3.0 10 1.5-8.5 Neutrophils # ELVIS ( [facility]) immature granulocyte % 0.2 % 0-3.0 Immature Gran ulocyte % ELVIS ([facility]) lymph # 1.3 10 1.5-5.0 Below low normal Lymph # ELVIS ( [facility]) nucleated red blood cell % 0.0 % 0-0 Nucleated Red Blood Cell % [facility]VIS ([facility]) eos # 0.0 10 0.0-0.5 Eos # [facility] ([facility]) baso # 0.0 10 0.0-0.2 Baso # [facility] ([facility]) mono # 0.5 10 0.0-0.8 Rock # EL[facility] ([facility]) ID Date Data Source [id number] 01/07/2021 08:10:00 AM EST [facility] ([facility]) Name Value Range Interpretation Code Description Data Hilary rce(s) Supporting Document(s) total 25(oh) vitamin D 21.4 NG/mL 30.0-100.0 Below low normal T otal 25(Oh) Vitamin D [facility] ([facility]) ID Date Data Source [id number] 01/07/2021 08:10:00 AM EST [facility] ([facility]) Name Value Range Interpretation Code Description Data Hilary rce(s) Supporting Document(s) thyroid stimulating hormone 2.280 uIU/mL 0.358-3.740 Thyroid Stimulating Hormone EL[facility] ([facility]) free T4 0.85 NG/dL 0.76-1.46 Free T4 [facility] ([facility]) ID Date Data Source [id number] 01/07/2021 08:10:00 AM EST [facility] ([facility]) Name Value Range Interpretation Code Description Data Hilary rce(s) Supporting Document(s) HDL cholesterol 59 mg/dL >40 HDL Cholesterol ATHE NA ([facility]) cholesterol level 204 mg/dL <200 Above high normal Cholesterol Level EL[facility] ([facility]) triglycerides level 52 mg/dL <150 Triglycerides Le susy ELVIS ([facility]) Cholesterol in LDL [Mass/volume] in Serum or Plasma 135 mg/dL <100 Above high normal LDL Cholesterol [facility] ([facility]) non-HDL-C 145 mg/dL Non-hdl-c EL[facility] ([facility]) cholesterol risk ratio <5 Cholesterol R isk Ratio ELVIS ([facility]) ID Date Data Source [id number] 01/07/2021 08:10:00 AM EST EL[facility] ([facility]) Name Value Range Interpretation Code Description Data Hilary rce(s) Supporting Document(s) glucose, fasting 98 mg/dL 70-100 Glucose, [facility]) blood urea nitrogen 21 mg/dL 7-18 Above high normal Blood Ure a Nitrogen EL[facility] ([facility]) sodium level 140 mEq/L 136-145 Sodium Level ELVIS ([facility]) glomerular filtration rate > 60.0 >60 Glomerula r Filtration Rate ELVIS ([facility]) creatinine for GFR 0.68 mg/dL 0.55-1.30 Creatinine for GF R ELVIS ([facility]) potassium serum 4.2 mEq/L 3.5-5.1 Potassium Serum ATHE ([facility]) AST/SGOT 10 U/L 7-37 AST/SGOT [facility] ([facility]) carbon dioxide level 29 mEq/L 21-32 Carbon Dioxide Level ELVIS ([facility]) calcium level 9.2 mg/dL 8.5-10.1 Calcium Level ELVIS ( [facility]) anion gap 3 mEq/L 8-16 Below low normal Anion Gap ELVIS ( [facility]) chloride level 108 mEq/L 98-107 Above high normal Chloride Level [facility]VIS ([facility]) bilirubin,total 0.4 mg/dL 0.2-1.0 Bilirubin,total ATHE ([facility]) ALT/SGPT 20 U/L 12-78 ALT/SGPT [facility] ([facility]) total protein 7.3 gm/dL 6.4-8.2 Total Protein ELVIS ( [facility]) albumin 4.2 gm/dL 3.2-5.2 Albumin EL[facility] ([facility]) alkaline phosphatase 80 U/L 45-117 Alkaline Phosph atase EL[facility] ([facility]) albumin/globulin ratio 1.2-2.2 Albumin/globu rupa Ratio [facility] ([facility]) ID Date Data Source [id number] 01/07/2021 08:10:00 AM EST [facility] [facility] ([facility]) Name Value Range Interpretation Code Description Data Hilary rce(s) Supporting Document(s) white blood count 4.9 10 4.0-10.0 White Blood Count [facility]VIS ([facility]) hemoglobin 14.4 g/dL 12.0-15.5 Hemoglobin [facility] ([facility]) hematocrit 43.2 % 36.0-47.0 Hematocrit [facility] ([facility]) red blood count 5.01 10 4.00-5.40 Red Blood Count ATHE ([facility]) red cell distribution width 12.7 % 11.5-14.5 Red Cell Distribution Width [facility] ([facility]) mean corpuscular hemoglobin 28.7 pg 27.0-33.0 Mean Cor puscular Hemoglobin EL[facility] ([facility]) mean corpuscular HGB conc 33.3 g/dL 32.0-36.5 Mean Corpu scular HGB Conc ELVIS ([facility]) mean corpuscular volume 86.2 fL 80.0-96.0 Mean Corpusc ular Volume ELVIS ([facility]) neutrophils % 61.7 % 36.0-66.0 Neutrophils % [place] ( [facility]) platelet count, automated 236 10 150-450 Platelet C ount, Automated ELVIS ([facility]) lymph % 27.4 % 24.0-44.0 Lymph % [facility] ([facility]) mono % 10.5 % 2.0-8.0 Above high normal Rock % ELVIS ([facility]) immature granulocyte % 0.2 % 0-3.0 Immature Gran ulocyte % ELVIS ([facility]) eos % 0.0 % 0.0-3.0 Eos % [facility] ([facility]) baso % 0.2 % 0.0-1.0 Baso % EL[facility] ([facility]) nucleated red blood cell % 0.0 % 0-0 Nucleated Red Blood Cell % [facility] ([facility]) mono # 0.5 10 0.0-0.8 Rock # EL[facility] ([facility]) neutrophils # 3.0 10 1.5-8.5 Neutrophils # [facility] ( [facility]) lymph # 1.3 10 1.5-5.0 Below low normal Lymph # ELVIS ( [facility]) baso # 0.0 10 0.0-0.2 Baso # [facility] ([facility]) eos # 0.0 10 0.0-0.5 Eos # [facility] ([facility]) Procedure Social History Code Duration Value Status Description Data Source(s ) Smoking 08/22/2021 12:00:00 AM EDT Never Smoker completed Never S moker [facility] ([facility]) Vital Signs ID Date Data Source UNK Name Value Range Interpretation Code Description Data Source(s) Body weight 233 [lb_av] 233 [lb_av] [facility] ([facility]) Body height 63 [in_i] 63 [in_i] [facility] ([facility]) Body mass index (BMI) [Ratio] 41.27 kg/m2 41.27 kg/m2 [facility] ([facility]) Systolic blood pressure 108 mm[Hg] 108 mm[Hg] e CW1 ([facility]) Diastolic blood pressure 80 mm[Hg] 80 mm[Hg] eCW1 ([facility]) Diastolic blood pressure 74 mm[Hg] 74 mm[Hg] [facility] ([facility]) Body height 63 [in_i] 63 [in_i] [facility] ([facility]) Body mass index (BMI) [Ratio] 40.2 kg/m2 40.2 k g/m2 [facility] ([facility]) Systolic blood pressure 108 mm[Hg] 108 mm[Hg] A THENA ([facility]) Body weight 3632 [oz_av] 3632 [oz_av] [facility] ([facility]) Diastolic blood pressure 70 mm[Hg] 70 mm[Hg] [facility] ([facility]) Body height 63 [in_i] 63 [in_i] [facility] ([facility]) Body mass index (BMI) [Ratio] 39.4 kg/m2 39.4 k g/m2 [facility] ([facility]) Systolic blood pressure 99 mm[Hg] 99 mm[Hg] A THENA ([facility]) Body weight 3560 [oz_av] 3560 [oz_av] [facility] ([facility]) Diastolic blood pressure 70 mm[Hg] 70 mm[Hg] [facility] ([facility]) Body height 63 [in_i] 63 [in_i] [facility] ([facility]) Body mass index (BMI) [Ratio] 39.4 kg/m2 39.4 k g/m2 [facility] ([facility]) Systolic blood pressure 99 mm[Hg] 99 mm[Hg] A THENA ([facility]) Body weight 3560 [oz_av] 3560 [oz_av] [facility] ([facility]) Body height 63 [in_i] 63 [in_i] [facility] ([facility]) Body height 63 [in_i] 63 [in_i] [facility] ([facility]) Body height 63 [in_i] 63 [in_i] [facility] ([facility]) Diastolic blood pressure 81 mm[Hg] 81 mm[Hg] EVLIS ([facility]) Body height 63 [in_i] 63 [in_i] [facility] ([facility]) Body mass index (BMI) [Ratio] 40.4 kg/m2 40.4 k g/m2 [facility] ([facility]) Systolic blood pressure 112 mm[Hg] 112 mm[Hg] A THENA ([facility]) Body weight 3652 [oz_av] 3652 [oz_av] [facility] ([facility]) Diastolic blood pressure 81 mm[Hg] 81 mm[Hg] [facility] ([facility]) Body height 63 [in_i] 63 [in_i] [facility] ([facility]) Body mass index (BMI) [Ratio] 40.4 kg/m2 40.4 k g/m2 [facility] ([facility]) Systolic blood pressure 112 mm[Hg] 112 mm[Hg] A THENA ([facility]) Body weight 3652 [oz_av] 3652 [oz_av] [facility] ([facility]) Diastolic blood pressure 81 mm[Hg] 81 mm[Hg] [facility] ([facility]) Body height 63 [in_i] 63 [in_i] [facility] ([facility]) Body mass index (BMI) [Ratio] 40.4 kg/m2 40.4 k g/m2 [facility] ([facility]) Systolic blood pressure 112 mm[Hg] 112 mm[Hg] A THENA ([facility]) Body weight 3652 [oz_av] 3652 [oz_av] [facility] ([facility]) Diastolic blood pressure 81 mm[Hg] 81 mm[Hg] [facility] ([facility]) Body height 63 [in_i] 63 [in_i] [facility] ([facility]) Body mass index (BMI) [Ratio] 40.4 kg/m2 40.4 k g/m2 [facility] ([facility]) Systolic blood pressure 112 mm[Hg] 112 mm[Hg] A THENA ([facility]) Body weight 3652 [oz_av] 3652 [oz_av] [facility] ([facility]) Patient Treatment Plan of Care Planned Activity Planned Date Details Description Data Source (s) Ibuprofen 800 MG Oral Tablet [facility] ([facility]) Ergocalciferol 41545 UNT Oral Capsule [facility] ([facility]) Ibuprofen 800 MG Oral Tablet [facility] ([facility]) Ibuprofen 800 MG Oral Tablet [facility] ([facility]) Ibuprofen 800 MG Oral Tablet [facility] ([facility])
== END 2021-09-13 14:56 | disposition home or self-care (01) ==
LOC: M ED 13:17
DX: S93.401A Sprain of unspecified ligament of right ankle, initial encounter (principal); X50.9XXA Other and unspecified overexertion or strenuous movements or postures, initial encounter; Y92.89 Other specified places as the place of occurrence of the external cause; Y99.0 Civilian activity done for income or pay; F41.9 Anxiety disorder, unspecified; K21.9 Gastro-esophageal reflux disease without esophagitis; Z88.1 Allergy status to other antibiotic agents

== ENCOUNTER 2022-01-30 15:25 | Emergency (ER) | payer OTHER ==
[~2022-01-30] VITALS: Ht 160 cm; Wt 109.9 kg
[2022-01-30 15:25] VITALS: BP 136/79
[2022-01-30] MEDS ORDERED: OMEP-173 (15:51)
[2022-01-30] MEDS ORDERED: HYDR-3363 (15:51)
[2022-01-30] MEDS ORDERED: KETOROLAC TROMETHAMINE 10 MG TAB PO ONE (19:25)
[2022-01-30] MEDS ORDERED: KETO10TAB PO (19:28)
== END 2022-01-30 20:42 | disposition home or self-care (01) ==
LOC: M ED 15:25
DX: S60.221A Contusion of right hand, initial encounter (principal); Y04.8XXA Assault by other bodily force, initial encounter; Y07.59 Other non-family member, perpetrator of maltreatment and neglect; Y92.215 Trade school as the place of occurrence of the external cause; Y99.0 Civilian activity done for income or pay; K21.9 Gastro-esophageal reflux disease without esophagitis; Z79.899 Other long term (current) drug therapy; Z88.1 Allergy status to other antibiotic agents; Z91.040 Latex allergy status

== ENCOUNTER → 2022-06-26 | Outpatient (CLI) | payer OTHER ==
[~2022-06-26] MED LIST: HYDR-3363; KETO10TAB PO; OMEP-173
== END ==
LOC: M WUC 10:17
PROVIDERS: ATTEND Nurse Practitioner Family
DX: M79.672 Pain in left foot (principal)

== ENCOUNTER 2022-07-14 08:07 | Emergency (ER) | payer OTHER ==
[~2022-07-14] VITALS: Ht 160 cm; Wt 106.8 kg
[2022-07-14 11:21] LABS: HCG, SERUM QUALITATIVE NEGATIVE (NEGATIVE)
[2022-07-14 12:17] VITALS: BP 120/84
== END 2022-07-14 12:25 | disposition home or self-care (01) ==
LOC: M ED 08:07
DX: S46.012A Strain of muscle(s) and tendon(s) of the rotator cuff of left shoulder, initial encounter (principal); Y04.8XXA Assault by other bodily force, initial encounter; Y99.0 Civilian activity done for income or pay; K21.9 Gastro-esophageal reflux disease without esophagitis; Z88.1 Allergy status to other antibiotic agents; Z91.040 Latex allergy status; Z79.899 Other long term (current) drug therapy

== ENCOUNTER → 2023-03-21 | Outpatient (REF) | payer OTHER ==
[2023-03-21 17:53] LABS: HEMATOCRIT 39.8 % (36.0-47.0); HEMOGLOBIN 13.4 g/dl (12.0-15.5); LYMPH # 1.9 10^3/uL (1.5-5.0); LYMPH % 25.3 % (24.0-44.0); MEAN CORPUSCULAR HEMOGLOBIN 27.9 pg (27.0-33.0); MEAN CORPUSCULAR HGB CONC 33.7 g/dl (32.0-36.5); MEAN CORPUSCULAR VOLUME 82.9 fl (80.0-96.0); MONO # 0.5 10^3/uL (0.0-0.8); MONO % 6.6 % (2.0-8.0); NEUTROPHILS % 67.8 % (36.0-66.0); PLATELET COUNT, AUTOMATED 291 10^3/uL (150-450); WHITE BLOOD COUNT 7.4 10^3/uL (4.0-10.0)
[2023-03-21 18:30] LABS: ALBUMIN 3.9 G/DL (3.2-5.2); ALKALINE PHOSPHATASE 82 U/L (46-116); ALT/SGPT 25 U/L (7.0-40); AST/SGOT 25 U/L (<34); BILIRUBIN,TOTAL 0.4 MG/DL (0.3-1.2); BLOOD UREA NITROGEN 18 MG/DL (9-23); CALCIUM LEVEL 8.5 MG/DL (8.5-10.1); CARBON DIOXIDE LEVEL 25 MMOL/L (20-31); CHLORIDE LEVEL 104 MMOL/L (98-107); CREATININE FOR GFR 0.73 MG/DL (0.55-1.30); GLOMERULAR FILTRATION RATE > 60.0 (>60); GLUCOSE, FASTING 103 MG/DL (60-100); POTASSIUM SERUM 3.9 MMOL/L (3.5-5.1); SODIUM LEVEL 138 MMOL/L (136-145); THYROID STIMULATING HORMONE 3.545 uIU/ML (0.55-4.78); TOTAL PROTEIN 6.7 G/DL (5.7-8.2)
== END ==
LOC: M LAB REF 16:53
PROVIDERS: ATTEND Nurse Practitioner Family
DX: E66.9 Obesity, unspecified (principal)

== ENCOUNTER 2024-04-12 15:34 | Emergency (ER) | payer OTHER ==
[~2024-04-12] VITALS: Ht 160 cm; Wt 116.4 kg
[2024-04-12] MEDS: LIDOCAINE 1% MDV 20ML VIAL SC ONE (17:50)
[2024-04-12] MEDS: BOOSTRIX VACCINE (TETANUS/DIPHTH/ACEL. PERTUSSIS) 0.5ML SYR IM ONE (17:56)
[2024-04-12 18:34] VITALS: BP 136/89; TEMP 97.3; O2SAT 100
== END 2024-04-12 18:38 | disposition home or self-care (01) ==
LOC: M ED 15:34
DX: S91.311A Laceration without foreign body, right foot, initial encounter (principal); S92.911A Unspecified fracture of right toe(s), initial encounter for closed fracture; Y92.9 Unspecified place or not applicable; Y93.9 Activity, unspecified; Y99.9 Unspecified external cause status; W22.03XA Walked into furniture, initial encounter; Z88.1 Allergy status to other antibiotic agents; Z91.040 Latex allergy status; Z79.899 Other long term (current) drug therapy; Z79.2 Long term (current) use of antibiotics; Z23 Encounter for immunization

== ENCOUNTER → 2024-11-17 | Outpatient (REF) | payer OTHER ==
[2024-11-17 16:56] LABS: BASO % 0.2 % (0.0-1.0); HEMATOCRIT 43.3 % (36.0-47.0); HEMOGLOBIN 14.3 g/dl (12.0-15.5); LYMPH # 1.3 10^3/uL (1.5-5.0); LYMPH % 22.1 % (24.0-44.0); MEAN CORPUSCULAR HEMOGLOBIN 28.3 pg (27.0-33.0); MEAN CORPUSCULAR VOLUME 85.6 fl (80.0-96.0); MONO # 0.5 10^3/uL (0.0-0.8); MONO % 9.1 % (2.0-8.0); NEUTROPHILS # 3.9 10^3/uL (1.5-8.5); NEUTROPHILS % 68.3 % (36.0-66.0); PLATELET COUNT, AUTOMATED 294 10^3/uL (150-450); RED BLOOD COUNT 5.06 10^6/uL (4.00-5.40); WHITE BLOOD COUNT 5.7 10^3/uL (4.0-10.0)
[2024-11-17 17:28] LABS: BLOOD UREA NITROGEN 18 MG/DL (9-23); CALCIUM LEVEL 9.2 MG/DL (8.5-10.1); CARBON DIOXIDE LEVEL 27 MMOL/L (20-31); CHLORIDE LEVEL 108 MMOL/L (98-107); CHOLESTEROL LEVEL 190 MG/DL (<200); CHOLESTEROL RISK RATIO 4.03 (<5); CREATININE FOR GFR 0.73 MG/DL (0.55-1.30); GLOMERULAR FILTRATION RATE > 60.0 (>60); GLUCOSE, FASTING 87 MG/DL (60-100); HDL CHOLESTEROL 47.1 MG/DL (>40); LDL CHOLESTEROL 118.1 MG/DL (<100); NON-HDL-C 142.9 MG/DL; POTASSIUM SERUM 4.7 MMOL/L (3.5-5.1); SODIUM LEVEL 142 MMOL/L (136-145); TRIGLYCERIDES LEVEL 124 MG/DL (<150)
[2024-11-17 17:30] LABS: THYROID STIMULATING HORMONE 2.678 uIU/ML (0.55-4.78)
== END ==
LOC: M LAB REF 13:28
PROVIDERS: ATTEND Nurse Practitioner Family
DX: Z12.4 Encounter for screening for malignant neoplasm of cervix (principal); E66.9 Obesity, unspecified; Z11.9 Encounter for screening for infectious and parasitic diseases, unspecified

== ENCOUNTER → 2024-12-30 | Outpatient (REF) | payer OTHER ==
[2025-01-02 15:46] LABS: HPV APTIMA Not Detected (Not Detected)
== END ==
LOC: M LAB REF 08:07
PROVIDERS: ATTEND Nurse Practitioner Family
DX: R87.615 Unsatisfactory cytologic smear of cervix (principal)